=== PATIENT | female | born 1960 | race Caucasian/White ===

== ENCOUNTER 2022-11-17 09:40 | Emergency (ER) | payer BC, OTHER ==
[2022-11-17 09:47] VITALS: TEMP 98.6
[2022-11-17] MEDS ORDERED: SODIUM CHLORIDE 0.9% 2,000 ML IV STA (10:05)
[2022-11-17] MEDS ORDERED: hydrALAZINE HCL 20 MG/ML 1 ML VIAL IVP STA (10:18)
[2022-11-17] MEDS ORDERED: LORazepam 2 MG/ML INJ IV STA (10:30)
--- NOTE | 2022-11-17 10:42 | ED ---
Anxiety HPI - General Chief Complaint: Anxiety Stated Complaint: HTN,Anxiety Time Seen by Provider: 11/17/22 10:02 Source: EMS Mode of arrival: EMS - History of Present Illness Initial Comments: Patient 62-year-old female who presents to the emergency department with a chief complaint of anxiety. Patient states her is out of town who usually does the driving for patient which has been giving patient extra stress. Patient states over the past 2 days she has had daily episodes of where she feels lightheaded, heart racing, spotty vision, and "hot and itchy in her face and scalp." These episodes last about 30 seconds. Patient states she feels very anxious during this time. She does admit to history of panic attack. She denies vision changes currently. No syncope, chest pain or shortness of breath. Patient states she has not been to a doctor in 13 years. No history of cardiac disease that she knows of. Family history of cardiac disease includes her father who had a CABG at age 53. Patient drank 12 ounces of vodka daily for the past 2 years. Last drink was last night. She denies history of alcohol withdrawal hallucinations and seizure. MD Complaint: anxiety - Related Data Home Medications: Previous Rx's Medication Instructions Recorded hydrOXYzine HCL [Atarax] 10 mg PO TID PRN #15 tab 11/17/22 Allergies/Adverse Reactions: Allergies Allergy/AdvReac Type Severity Reaction Status Date / Time No Known Allergies Allergy Verified 11/17/22 10:16 Review of Systems ROS Statement: Those systems with pertinent positive or pertinent negative responses have been documented in the HPI. ROS Other: All systems not noted in ROS Statement are negative. Past Medical History Past Medical History: No Reported History History of Any Multi-Drug Resistant Organisms: None Reported Past Surgical History: Hysterectomy, Tonsillectomy Past Psychological History: No Psychological Hx Reported Smoking Status: Unknown if ever smoked Past Alcohol Use History: Daily Past Drug Use History: None Reported General Exam Limitations: no limitations General appearance: alert, in no apparent distress Head exam: Present: atraumatic, normocephalic, normal inspection Eye exam: Present: normal appearance, PERRL, EOMI. Absent: scleral icterus, conjunctival injection, periorbital swelling Respiratory exam: Present: normal lung sounds bilaterally. Absent: respiratory distress, wheezes, rales, rhonchi, stridor Cardiovascular Exam: Present: normal rhythm, tachycardia, normal heart sounds. Absent: regular rate, systolic murmur, diastolic murmur, rubs, gallop, clicks GI/Abdominal exam: Present: soft, normal bowel sounds. Absent: distended, tenderness, guarding, rebound, rigid Neurological exam: Present: alert, oriented X3, CN II-XII intact Psychiatric exam: Present: normal affect, anxious. Absent: normal mood Skin exam: Present: warm, dry, intact, normal color. Absent: rash Course Vital Signs 11/17/22 11/17/22 11/17/22 09:41 10:45 11:35 Temperature 98.6 F Pulse Rate 104 H 101 H 89 Respiratory 24 18 18 Rate Blood Pressure 181/108 160/98 148/79 O2 Sat by Pulse 99 99 99 Oximetry Medical Decision Making - Medical Decision Making Was pt. sent in by a medical professional or institution (, PA, BARREL WATERER, urgent care, hospital, or assisted...) When possible be specific @ -[No] Did you speak to anyone other than the patient for history (EMS, parent, family, police, friend...)? What history was obtained from this source @ -[No] Did you review nursing and triage notes (agree or disagree)? Why? @ -[I reviewed and agree with nursing and triage notes] Were old charts reviewed (outside hosp., previous admission, EMS record, old EKG, old radiological studies, urgent care reports/EKG's, assisted records)? Report findings @ -Attempted, this is patient's first visit. Differential Diagnosis (chest pain, altered mental status, abdominal pain women, abdominal pain men, vaginal bleeding, weakness, fever, dyspnea, syncope, headache, dizziness, GI bleed, back pain, seizure, CVA, palpatations, mental health)? @ Differential Dizziness: Benign paroxysmal positional Vertigo, Menieres disease, otitis media, acoustic neuroma, vertebrobasilar insufficiency, cerebellar stroke, encephalitis, hypovolemic, arrhythmia, coronary artery syndrome, anemia, this is not meant to be an all-inclusive listt. EKG interpreted by me (3pts min.). @ -Yes, EKG shows sinus rhythm with occasional supraventricular premature complexes. Ventricular rate 96, SD interval 153, QRS duration 88, QTC 414 X-rays interpreted by me (1pt min.). @ Yes, chest x-ray shows COPD changes without acute process CT interpreted by me (1pt min.). @ -[None done] U/S interpreted by me (1pt. min.). @ -[None done] What testing was considered but not performed or refused? (CT, X-rays, U/S, labs)? Why? @ -[None] What meds were considered but not given or refused? Why? @ -[None] Did you discuss the management of the patient with other professionals (professionals i.e. , PA, BARREL WATERER, lab, RT, psych nurse, social services director, paper rewinder, teacher, supply requirements officer, rehabilitation caseworker)? Give summary @ -[No] Was smoking cessation discussed for >3mins.? @ -[No] Was critical care preformed (if so, how long)? @ -[No] Were there social determinants of health that impacted care today? How? (Homelessness, low income, unemployed, alcoholism, drug addiction, transportation, low edu. Level, literacy, decrease access to med. care, [facility], rehab)? @ -[No] Was there de-escalation of care discussed even if they declined (Discuss DNR or withdrawal of care, Hospice)? DNR status @ -[No] What co-morbidities impacted this encounter? (DM, HTN, Smoking, COPD, CAD, Cancer, CVA, ARF, Chemo, Hep., AIDS, mental health diagnosis, sleep apnea, morbid obesity)? @ -Alcohol use Was patient admitted / discharged? Hospital course, mention meds given and route, prescriptions, significant lab abnormalities, going to OR and other pertinent info. @ -Discharged. Blood pressure elevated at 181/108. Tachycardia up to 115. No chest pain or shortness of breath. Laboratory studies ultimately relatively unremarkable. Patient treated with large fluid bolus and Ativan. Blood pressure improved significantly. Tachycardia resolved. Patient feeling better. Stressed importance of alcohol cessation and establishing care with a primary care provider. Patient instructed to check blood pressure at home record measurements until primary care appointment. Undiagnosed new problem with uncertain prognosis? @ -[No] Drug Therapy requiring intensive monitoring for toxicity (Heparin, Nitro, Insulin, Cardizem)? @ -[No] Were any procedures done? @ -[No] Diagnosis/symptom? @ -Anxiety Acute, or Chronic, or Acute on Chronic? @ -Acute Uncomplicated (without systemic symptoms) or Complicated (systemic symptoms)? @ -Uncomplicated Side effects of treatment? @ -[No] Exacerbation, Progression, or Severe Exacerbation? @ -[No] Poses a threat to life or bodily function? How? (Chest pain, [place], [place], pneumonia, PE, COPD, DKA, ARF, appy, cholecystitis, CVA, Diverticulitis, Homicidal, Suicidal, threat to staff... and all critical care pts) @ -[No] Diagnosis/symptom? @ High blood pressure Acute, or Chronic, or Acute on Chronic? @ Acute Uncomplicated (without systemic symptoms) or Complicated (systemic symptoms)? @ -Uncomplicated Side effects of treatment? @ -[none] Exacerbation, Progression, or Severe Exacerbation] @ -[no] Poses a threat to life or bodily function? @ -[no] Dr. Harding is my attending. - Lab Data Result diagrams: 11/17/22 10:30 11/17/22 11:18 Lab Results 11/17/22 11/17/22 11/17/22 Range/Units 10:30 10:30 10:30 WBC 7.6 (3.8-10.6) k/uL RBC 5.07 (3.80-5.40) m/uL Hgb 16.3 H (11.4-16.0) gm/dL Hct 48.7 H (34.0-46.0) % MCV 96.0 (80.0-100.0) fL MCH 32.2 (25.0-35.0) pg MCHC 33.5 (31.0-37.0) g/dL RDW 12.4 (11.5-15.5) % Plt Count 182 (150-450) k/uL MPV 7.3 Neutrophils % 83 % Lymphocytes % 10 % Monocytes % 4 % Eosinophils % 1 % Basophils % 0 % Neutrophils # 6.3 (1.3-7.7) k/uL Lymphocytes # 0.8 L (1.0-4.8) k/uL Monocytes # 0.3 (0-1.0) k/uL Eosinophils # 0.1 (0-0.7) k/uL Basophils # 0.0 (0-0.2) k/uL Sodium (137-145) mmol/L Potassium (3.5-5.1) mmol/L Chloride (98-107) mmol/L Carbon Dioxide (22-30) mmol/L Anion Gap mmol/L BUN (7-17) mg/dL Creatinine (0.52-1.04) mg/dL Est GFR (CKD-EPI)AfAm (>60 ml/min/1.73 sqM) Est GFR (CKD-EPI)NonAf (>60 ml/min/1.73 sqM) Glucose (74-99) mg/dL Calcium (8.4-10.2) mg/dL Total Bilirubin (0.2-1.3) mg/dL AST (14-36) U/L ALT (4-34) U/L Alkaline Phosphatase (38-126) U/L Total Protein (6.3-8.2) g/dL Albumin (3.5-5.0) g/dL Urine Color Light Yellow Urine Appearance Clear (Clear) Urine pH 6.0 (5.0-8.0) Ur Specific [place] 1.004 (1.001-1.035) Urine Protein Trace H (Negative) Urine Glucose (UA) Negative (Negative) Urine Ketones 1+ H (Negative) Urine Blood Negative (Negative) Urine Nitrite Negative (Negative) Urine Bilirubin Negative (Negative) Urine Urobilinogen <2.0 (<2.0) mg/dL Ur Leukocyte Esterase Negative (Negative) Influenza Type A (PCR) Not Detected (Not Detectd) Influenza Type B (PCR) Not Detected (Not Detectd) RSV (PCR) Not Detected (Not Detectd) SARS-CoV-2 (PCR) Not Detected (Not Detectd) 11/17/22 Range/Units 11:18 WBC (3.8-10.6) k/uL RBC (3.80-5.40) m/uL Hgb (11.4-16.0) gm/dL Hct (34.0-46.0) % MCV (80.0-100.0) fL MCH (25.0-35.0) pg MCHC (31.0-37.0) g/dL RDW (11.5-15.5) % Plt Count (150-450) k/uL MPV Neutrophils % % Lymphocytes % % Monocytes % % Eosinophils % % Basophils % % Neutrophils # (1.3-7.7) k/uL Lymphocytes # (1.0-4.8) k/uL Monocytes # (0-1.0) k/uL Eosinophils # (0-0.7) k/uL Basophils # (0-0.2) k/uL Sodium 137 (137-145) mmol/L Potassium 3.5 (3.5-5.1) mmol/L Chloride 107 (98-107) mmol/L Carbon Dioxide 24 (22-30) mmol/L Anion Gap 6 mmol/L BUN 4 L (7-17) mg/dL Creatinine 0.46 L (0.52-1.04) mg/dL Est GFR (CKD-EPI)AfAm >90 (>60 ml/min/1.73 sqM) Est GFR (CKD-EPI)NonAf >90 (>60 ml/min/1.73 sqM) Glucose 89 (74-99) mg/dL Calcium 8.5 (8.4-10.2) mg/dL Total Bilirubin 0.7 (0.2-1.3) mg/dL AST 36 (14-36) U/L ALT 17 (4-34) U/L Alkaline Phosphatase 74 (38-126) U/L Total Protein 6.7 (6.3-8.2) g/dL Albumin 4.2 (3.5-5.0) g/dL Urine Color Urine Appearance (Clear) Urine pH (5.0-8.0) Ur Specific [place] (1.001-1.035) Urine Protein (Negative) Urine Glucose (UA) (Negative) Urine Ketones (Negative) Urine Blood (Negative) Urine Nitrite (Negative) Urine Bilirubin (Negative) Urine Urobilinogen (<2.0) mg/dL Ur Leukocyte Esterase (Negative) Influenza Type A (PCR) (Not Detectd) Influenza Type B (PCR) (Not Detectd) RSV (PCR) (Not Detectd) SARS-CoV-2 (PCR) (Not Detectd) Disposition Clinical Impression: Acute anxiety, High blood pressure Disposition: HOME SELF-CARE Condition: Good Instructions (If sedation given, give patient instructions): Hypertension (ED), Anxiety (ED), Mediterranean Diet (DC) Additional Instructions: Take medication as directed. It is very important to establish care with a primary care provider. I suggest buying a blood pressure cuff at the pharmacy and checking your blood pressure in the morning and at night, recording these numbers. Cessation of alcohol is crucial. Return to the emergency department if you experience new, concerning, or worsening symptoms. Prescriptions: hydrOXYzine HCL [Atarax] 10 mg PO TID PRN #15 tab PRN Reason: Anxiety Is patient prescribed a controlled substance at d/c from ED?: No Referrals: None,Stated [Primary Care Provider] - 1-2 days
[2022-11-17 10:45] LABS: Basophils % (A) 0 %; Eosinophils # (A) 0.1 k/uL (0-0.7); Eosinophils % (A) 1 %; HCT 48.7 % (34.0-46.0); HGB 16.3 gm/dL (11.4-16.0); Lymphocytes # (A) 0.8 k/uL (1.0-4.8); Lymphocytes % (A) 10 %; MCH 32.2 pg (25.0-35.0); MCHC 33.5 g/dL (31.0-37.0); Mean Platelet Volume 7.3; Monocytes # (A) 0.3 k/uL (0-1.0); Monocytes % (A) 4 %; Neutrophils # (A) 6.3 k/uL (1.3-7.7); Neutrophils % (A) 83 %; Platelet Count 182 k/uL (150-450); RBC 5.07 m/uL (3.80-5.40); RDW 12.4 % (11.5-15.5); WBC 7.6 k/uL (3.8-10.6)
[2022-11-17 10:59] LABS: Appearance,Urine Clear (Clear); Bilirubin,Urine Negative (Negative); Blood,Urine Negative (Negative); Color,Urine Light Yellow; Glucose,Urine (UA) Negative (Negative); Ketones,Urine 1+ (Negative); Leukocyte Esterase,Urine Negative (Negative); Nitrite,Urine Negative (Negative); Protein,Urine Trace (Negative); Specific Gravity,Urine 1.004 (1.001-1.035); Urobilinogen,Urine <2.0 mg/dL (<2.0)
--- NOTE | 2022-11-17 11:12 | XR ---
EXAMINATION TYPE: XR chest 2V DATE OF EXAM: 11/17/2022 11:01 AM COMPARISON: None TECHNIQUE: XR chest 2V Frontal and lateral views of the chest. CLINICAL INDICATION:Female, 62 years old with history of lightheaded; FINDINGS: Lungs/Pleura: There is flattening of the diaphragm with increased lucency of the lungs. No evidence o f pneumothorax, pleural effusion or focal consolidation. Postsurgical changes with suture material id entified within the right lung base. Pulmonary vascularity: Unremarkable. Heart/mediastinum: Cardiomediastinal silhouette is unremarkable. Atherosclerotic calcifications are seen in the aorta. Osseous structures: No acute process. IMPRESSION: 1. No acute cardiopulmonary disease process. 2. COPD changes.
[2022-11-17 11:17] VITALS: RESP 18
[2022-11-17 11:35] VITALS: BP 148/79; PULSE 89
[2022-11-17 11:44] LABS: ALT 17 U/L (4-34); AST 36 U/L (14-36); African American GFR (CKD) >90 (>60 ml/min/1.73 sqM); Albumin 4.2 g/dL (3.5-5.0); Alkaline Phosphatase 74 U/L (38-126); Anion Gap 6 mmol/L; Blood Urea Nitrogen 4 mg/dL (7-17); Calcium 8.5 mg/dL (8.4-10.2); Carbon Dioxide 24 mmol/L (22-30); Chloride 107 mmol/L (98-107); Glucose 89 mg/dL (74-99); Non-African American GFR(CKD) >90 (>60 ml/min/1.73 sqM); Potassium 3.5 mmol/L (3.5-5.1); Sodium 137 mmol/L (137-145); Total Bilirubin 0.7 mg/dL (0.2-1.3); Total Protein 6.7 g/dL (6.3-8.2)
== END 2022-11-17 12:23 | disposition home or self-care (01) ==
LOC: EC 09:40
DX: F41.9 Anxiety disorder, unspecified (principal); I10 Essential (primary) hypertension; J44.9 Chronic obstructive pulmonary disease, unspecified; Z20.822 Contact with and (suspected) exposure to COVID-19
CPT/HCPCS: 36415; 93005; 80053; 85025; 81003; 87636; 71046; 99284; 96374; 96361 ×2; J2060

== ENCOUNTER 2023-03-21 12:42 | Inpatient (IN) | payer BC, OTHER ==
[2023-03-21] MEDS ORDERED: SODIUM CHLORIDE 0.9% 1,000 ML IV STA (12:53)
[2023-03-21] MEDS ORDERED: NITROGLYCERIN SL TABS 0.4 MG TAB SUBLINGUAL PRN (12:53)
[2023-03-21] MEDS ORDERED: ATORVASTATIN 80 MG TAB PO STA (12:54)
[2023-03-21] MEDS ORDERED: VERAPAMIL 2.5 MG/ML 2 ML AMP ONE (12:55)
[2023-03-21] MEDS ORDERED: HEPARIN SODIUM 1,000 UN/ML (10ML VL) IV ONE ×2 (12:55→13:28)
[2023-03-21] MEDS ORDERED: LIDOCAINE 1% INJ 10MG/ML (20 ML MDV) ONE (12:55)
--- NOTE | 2023-03-21 12:56 | ED ---
Chest Pain HPI - General Stated Complaint: ANXIETY-CHEST PAIN Time Seen by Provider: 03/21/23 12:49 - History of Present Illness Initial Comments: 63-year-old female presents to the emergency room reporting chest pain and "anxiety". States that for the past couple of days she has felt extremely anxious with pressure in her chest. Feels as if she cannot calm herself down. She took hydroxyzine which is prescribed by her primary care doctor and had no improvement in her symptoms. Called EMS. States she began having chest pain while in the ambulance. They gave her 3 nitro and 4 chewable aspirins. Patient arrives and continues to have central chest pressure without shortness of breath. No cardiac history. States she began having issues with "anxiety" and chest pressure since November. Denies ever having a cardiac workup. The lower externally swelling. No calf pain. No history of DVT or PE. Does admit to drinking 10-12 ounces of vodka every night and did drink last night. No other alleviating, precipitating or modifying factors - Related Data Previous Rx's Medication Instructions Recorded hydrOXYzine HCL [Atarax] 10 mg PO TID PRN #15 tab 11/17/22 Allergies Allergy/AdvReac Type Severity Reaction Status Date / Time No Known Allergies Allergy Verified 03/21/23 13:04 Review of Systems ROS Statement: Those systems with pertinent positive or pertinent negative responses have been documented in the HPI. ROS Other: All systems not noted in ROS Statement are negative. Past Medical History Past Medical History: No Reported History History of Any Multi-Drug Resistant Organisms: None Reported Past Surgical History: Hysterectomy, Tonsillectomy Past Psychological History: No Psychological Hx Reported Smoking Status: Unknown if ever smoked Past Alcohol Use History: Daily Past Drug Use History: None Reported - Past Family History Father History Unknown: Yes Family Medical History: Myocardial Infarction ([place]) Mother Family Medical History: Thyroid Disorder General Exam General appearance: alert, anxious Head exam: Present: atraumatic, normocephalic, normal inspection Eye exam: Present: normal appearance, PERRL, EOMI. Absent: scleral icterus, conjunctival injection, periorbital swelling ENT exam: Present: normal exam, mucous membranes moist Neck exam: Present: normal inspection. Absent: tenderness, meningismus, lymphadenopathy Respiratory exam: Present: normal lung sounds bilaterally. Absent: respiratory distress, wheezes, rales, rhonchi, stridor Cardiovascular Exam: Present: normal rhythm, tachycardia, normal heart sounds. Absent: systolic murmur, diastolic murmur, rubs, gallop, clicks GI/Abdominal exam: Present: soft, normal bowel sounds. Absent: distended, tenderness, guarding, rebound, rigid Extremities exam: Present: normal inspection, full ROM, normal capillary refill. Absent: tenderness, pedal edema, joint swelling, calf tenderness Back exam: Present: normal inspection Neurological exam: Present: alert, oriented X3, CN II-XII intact Psychiatric exam: Present: normal affect, normal mood Skin exam: Present: warm, dry, intact, normal color. Absent: rash Course Vital Signs 03/21/23 03/21/23 03/21/23 12:50 12:55 13:01 Temperature 98 F Pulse Rate 110 H 110 H 122 H Respiratory 16 16 20 Rate Blood Pressure 176/96 181/97 195/104 O2 Sat by Pulse 99 99 95 Oximetry 03/21/23 13:06 Temperature Pulse Rate 122 H Respiratory 20 Rate Blood Pressure 189/114 O2 Sat by Pulse 96 Oximetry Chest Pain MDM - MDM Was pt. sent in by a medical professional or institution (, PA, PROGRAM MANAGEMENT ANALYST, urgent care, hospital, or [facility]...) When possible be specific @ -No Did you speak to anyone other than the patient for history (EMS, parent, family, police, friend...)? What history was obtained from this source @ -No Did you review nursing and triage notes (agree or disagree)? Why? @ -Yes I reviewed the nursing note and I agree with the assessment of the patient Were old charts reviewed (outside hosp., previous admission, EMS record, old EKG, old radiological studies, urgent care reports/EKG's, [facility] records)? Report findings @ -I reviewed the patient's previous ED visit in November where she was seen for anxiety Differential Diagnosis (chest pain, altered mental status, abdominal pain women, abdominal pain men, vaginal bleeding, weakness, fever, dyspnea, syncope, headache, dizziness, GI bleed, back pain, seizure, CVA, palpatations, mental health, musculoskeletal)? @ -Differential Chest Pain: Stable Angina, Unstable Angina, STEMI, NSTEMI Aortic Dissection, Pneumothorax, Musculoskeletal, Esophageal Spasm GERD, Cholecystitis, Pancreatitis, Zoster, this is not meant to be an all-inclusive list. EKG interpreted by me (3pts min.). @ -EKG interpreted by me demonstrates sinus tachycardia with a rate of 109. AR interval 154. QRS 95. QTC of 406. ST elevation in V4 through V6. J-point elevation 2, 3, aVF. Some ST depression in aVR. X-rays interpreted by me (1pt min.). @ -X-ray interpreted by me as no acute process CT interpreted by me (1pt min.). @ -None done U/S interpreted by me (1pt. min.). @ -None done What testing was considered but not performed or refused? (CT, X-rays, U/S, labs)? Why? @ -None What meds were considered but not given or refused? Why? @ -None Did you discuss the management of the patient with other professionals (professionals i.e. , PA, PROGRAM MANAGEMENT ANALYST, lab, RT, psych nurse, psychiatric social worker supervisor, medical science liaison, teacher, procurement officer, case finishing machine adjuster)? Give summary @ -I discussed the case with Dr. Rogel who presents to the ED and take the patient to the [facility] Was smoking cessation discussed for >3mins.? @ -No Was critical care preformed (if so, how long)? @ -Yes, 32 minutes Were there social determinants of health that impacted care today? How? (Homelessness, low income, unemployed, alcoholism, drug addiction, transportation, low edu. Level, literacy, decrease access to med. care, [facility], rehab)? @ -No Was there de-escalation of care discussed even if they declined (Discuss DNR or withdrawal of care, Hospice)? DNR status @ -No What co-morbidities impacted this encounter? (DM, HTN, Smoking, COPD, CAD, Cancer, CVA, ARF, Chemo, Hep., AIDS, mental health diagnosis, sleep apnea, morbid obesity)? @ -None Was patient admitted / discharged? Hospital course, mention meds given and route, prescriptions, significant lab abnormalities, going to OR and other pertinent info. @ -Upon arrival the patient is placed in room 6. Thorough history and physical exam is performed. Patient was placed on continuous pulse ox and cardiac monitoring. 12-lead EKG shows ST elevation in lateral leads which is new for the patient's previous EKG. STEMI was activated. Dr. Rogel presents emergency room and evaluates the patient. He is agreeable that the patient needs a heart cath at this time. Patient was agreeable to procedure. Laboratory studies are sent. Portable chest x-rays performed. Patient taken to [facility] recently in stable condition. [facility] paged for admission Undiagnosed new problem with uncertain prognosis? @ -yes Drug Therapy requiring intensive monitoring for toxicity (Heparin, Nitro, Insulin, Cardizem)? @ -Heparin Were any procedures done? @ -No Diagnosis/symptom? @ -Acute chest pain, acute ST segment elevation Acute, or Chronic, or Acute on Chronic? @ -Acute Uncomplicated (without systemic symptoms) or Complicated (systemic symptoms)? @ -Complicated Side effects of treatment? @ -Bleeding Exacerbation, Progression, or Severe Exacerbation? @ -No Poses a threat to life or bodily function? How? (Chest pain, [place], [place], pneumonia, PE, COPD, DKA, ARF, appy, cholecystitis, CVA, Diverticulitis, Homicidal, Suicidal, threat to staff... and all critical care pts) @ -Yes patient is suffering from acute coronary event which needs immediate catheterization Disposition Clinical Impression: Chest pain, STEMI (ST elevation myocardial infarction) Disposition: ADMITTED IP TO THIS [facility] Condition: Stable Is patient prescribed a controlled substance at d/c from ED?: No Time of Disposition: 13:09 Decision to Admit Reason: Admit from EC Decision Date: 03/21/23 Decision Time: 13:09
[2023-03-21] MEDS ORDERED: HEPARIN SODIUM 1,000 UN/ML (10ML VL) ONE (13:02)
[2023-03-21] MEDS ORDERED: fentaNYL (PF) 50 MCG/ML 2 ML AMP ONE (13:03)
[2023-03-21] MEDS ORDERED: HEPARIN SODIUM,PORCINE 30 ML 30 ML ONE (13:03)
--- NOTE | 2023-03-21 13:08 | XR ---
EXAMINATION TYPE: XR chest 1V portable DATE OF EXAM: 03/21/2023 HISTORY: Shortness of breath. COMPARISON: 11/17/2022 TECHNIQUE: Single view of the chest is submitted. FINDINGS: Demonstrated are scattered senescent parenchymal change. There is no evidence for focal infiltrate. The heart is stable. Hilar and mediastinal structures are within normal limits. Degenerative changes are seen of the dorsal spine. IMPRESSION: 1. Chronic changes without evidence for acute pulmonary disease.
[2023-03-21] MEDS ORDERED: NALOXONE 0.4 MG/ML 1 ML VIAL IV PRN (13:09)
--- NOTE | 2023-03-21 13:15 | P.CRDCN ---
History of Present Illness Consult date: 03/21/23 History of present illness: PROGRESS NOTE The patient is a 63-year-old female who presented to the emergency room with symptoms of anxiety, not feeling well and was having chest pain EMS. In the emergency room she was noted to be in sinus mechanism, her EKG showed ST segment elevation in leads V4 to V6 and mild elevation in lead 1 which is new compared to an EKG performed in October of this year. The patient is active physically, usually has no exertional chest discomfort or dyspnea. She has no history of cardiac disease. She is a nonsmoker. She drinks alcohol, vodka on a regular basis. She denies any PND, orthopnea or peripheral edema. She had issues with anxiety in the past and usually do get better when she walks Medications: None Review of system: Respiratory system: No history of asthma emphysema or bronchitis GI: No nausea or vomiting no GI bleeding : No recent bleeding, or dysuria Nervous system: No history of stroke or seizure PHYSICAL EXAMINATION: 63-year-old female, alert and oriented no distress, Blood pressure 189/110 heart rate 120 Head normocephalic Eyes sclera nonicteric LUNGS: Clear to auscultation HEART: Regular rate and rhythm, S1, S2. No S3. No systolic murmur ABDOMEN: Soft, nontender, no organomegaly EXTREMETIES: No edema LAB: Pending, chest x-ray with no acute infiltrate IMPRESSION: 1. Acute chest discomfort with EKG changes consistent with STEMI 2. Hypertension not documented the past 3. Daily alcohol intake 4. History of anxiety PLAN: 1. Proceed with cardiac catheterization, the procedure as well as the risks and the complication were discussed with her, she is in full understanding and agreement 2. Depending on the results of the testing further recommendations will be made 3. Obtain an echocardiogram with Doppler 4. Thank you for this consult we will follow with you. Past Medical History Past Medical History: No Reported History History of Any Multi-Drug Resistant Organisms: None Reported Past Surgical History: Hysterectomy, Tonsillectomy Past Psychological History: No Psychological Hx Reported Smoking Status: Unknown if ever smoked Past Alcohol Use History: Daily Past Drug Use History: None Reported Medications and Allergies Home Medications Medication Instructions Recorded Confirmed Type hydrOXYzine HCL [Atarax] 10 mg PO TID PRN #15 tab 11/17/22 Rx Allergies Allergy/AdvReac Type Severity Reaction Status Date / Time No Known Allergies Allergy Verified 03/21/23 13:04 Physical Exam Vitals: Vital Signs Temp Pulse Resp BP Pulse Ox 03/21/23 13:06 122 H 20 189/114 96 03/21/23 13:01 98 F 122 H 20 195/104 95 Intake and Output 03/20/23 03/21/23 03/21/23 22:59 06:59 14:59 Other: Weight 55.792 kg Results Current Medications Generic Name Dose Route Start Last Admin Trade Name Freq PRN Reason Stop Dose Admin Sodium Chloride 1,000 mls @ 999 mls/hr 03/21/23 12:53 03/21/23 12:57 Saline 0.9% IV 03/21/23 13:53 999 mls/hr .Q1H1M STA Administration Nitroglycerin 0.4 mg 03/21/23 12:53 Nitroglycerin Sl Tabs 0.4 Mg Tab SUBLINGUAL Q5M PRN Chest Pain Intake and Output 03/20/23 03/21/23 03/21/23 22:59 06:59 14:59 Other: Weight 55.792 kg Patient Weight 03/22/23 06:59 Weight 55.792 kg
[2023-03-21] MEDS ORDERED: IV FLUID CONTINUATION 1,000 ML IV ONE (13:20)
[2023-03-21] MEDS ORDERED: fentaNYL (PF) 50 MCG/ML 2 ML AMP IV ONE (13:21)
[2023-03-21] MEDS ORDERED: LIDOCAINE 1% INJ 10MG/ML (20 ML MDV) SQ ONE (13:23)
[2023-03-21 13:24] LABS: Basophils % (A) 0 %; Eosinophils % (A) 1 %; HCT 42.8 % (34.0-46.0); HGB 14.4 gm/dL (11.4-16.0); Lymphocytes # (A) 0.9 k/uL (1.0-4.8); Lymphocytes % (A) 13 %; MCH 33.4 pg (25.0-35.0); MCHC 33.7 g/dL (31.0-37.0); MCV 99.2 fL (80.0-100.0); Mean Platelet Volume 6.8; Monocytes # (A) 0.3 k/uL (0-1.0); Monocytes % (A) 5 %; Neutrophils # (A) 5.5 k/uL (1.3-7.7); Neutrophils % (A) 79 %; Platelet Count 207 k/uL (150-450); RBC 4.32 m/uL (3.80-5.40); RDW 11.9 % (11.5-15.5)
[2023-03-21] MEDS ORDERED: MIDAZOLAM 2 MG/2 ML VIAL IV ONE (13:24)
[2023-03-21] MEDS ORDERED: VERAPAMIL SYRINGE (5 MG/10 ML) INTRAARTER ONE (13:25)
[2023-03-21] MEDS ORDERED: METOPROLOL TARTRATE 5 MG/5 ML VIAL IVP ONE (13:30)
[2023-03-21] MEDS: METOPROLOL TARTRATE 5 MG/5 ML VIAL IVP ONE ×2 (13:32→13:39)
[2023-03-21] MEDS ORDERED: CLOPIDOGREL 75 MG TAB ONE (13:35)
[2023-03-21 13:36] LABS: ALT 22 U/L (4-34); AST 35 U/L (14-36); African American GFR (CKD) >90 (>60 ml/min/1.73 sqM); Albumin 4.5 g/dL (3.5-5.0); Alkaline Phosphatase 85 U/L (38-126); Anion Gap 16 mmol/L; Blood Urea Nitrogen 9 mg/dL (7-17); Calcium 8.9 mg/dL (8.4-10.2); Carbon Dioxide 22 mmol/L (22-30); Chloride 94 mmol/L (98-107); Glucose 125 mg/dL (74-99); Magnesium 1.6 mg/dL (1.6-2.3); Non-African American GFR(CKD) 88 (>60 ml/min/1.73 sqM); Potassium 3.6 mmol/L (3.5-5.1); Sodium 132 mmol/L (137-145); Total Bilirubin 0.5 mg/dL (0.2-1.3); Total Protein 7.1 g/dL (6.3-8.2)
[2023-03-21] MEDS ORDERED: CLOPIDOGREL 75 MG TAB PO ONE (13:37)
[2023-03-21] MEDS ORDERED: IOPAMIDOL-370 100ML BTL INJ ONE (13:40)
[2023-03-21] MEDS ORDERED: RX INFO: IV CONTRAST WAS GIVEN 1 EACH MISC MISCELLANE PRN (13:42)
[2023-03-21] MEDS ORDERED: SODIUM CHLORIDE 0.9% 1,000 ML IV SCH (13:45)
[2023-03-21 13:47] LABS: Prothrombin Time 10.6 sec (9.0-12.0)
--- NOTE | 2023-03-21 13:49 | P.CARDCATH ---
Date of Procedure: 03/21/23 Description of Procedure: Cardiac Catheterization: The patient is a 63-year-old female with no prior history of cardiac disease presented to the emergency room with symptoms of anxiety and chest discomfort, she had ST segment elevation in the lateral precordial leads. Recommendations were made regarding cardiac catheterization, the risks and the complications were discussed with the patient who is in full understanding and agreement. Procedure Description: Patient was brought to catheterization laboratory technician in fasting semi-sedated state after receiving Fentanyl and Benadryl achieiving moderate conscious sedated state. Using Xylocaine Anesthesia and Seldinger technique, a 6-Turkmen sheath was introduced in the right radial artery . Subsequently, selective coronary angiography was performed using a 5-Turkmen 3.5 bend right Vicky catheter and 6-Turkmen FL 3.5 guiding catheter. Multiple views of the coronary artery including hemiaxial views were obtained. The 6-Turkmen pigtail catheter was used to cross the aortic valve and LVEDP was calculated. An LUO view of the left ventricle was performed. Following that, catheter and sheath were removed. Hemostasis was obtained with deployment of TR band . There was no immediate complication. Patient was returned to room in stable condition. Of note, the patient received a total of 3000 units of intravenous heparin as well as intra-arterial verapamil. Findings: Left main: This is a large size vessel, bifurcating into LAD and left circumflex, left main has no high-grade stenosis LAD: This is a large size vessel reaching to the apex, giving rise to moderately sized diagonal branch proximally, the LAD and its branches have no evidence of obstructive disease Left circumflex: This is a large nondominant vessel, giving rise to 2 obtuse marginal branch have no evidence of obstructive disease RCA: This is a dominant vessel large in caliber bifurcating into PDA and PLV the RCA has no obstructive disease Left Ventriculogram: Performed in the LUO view revealed anteroapical akinesis, ejection fraction 35-40% Hemodynamics: There was no gradient across the aortic valve , LVEDP was 20-24 mmHg Conclusion: 1. Normal coronary arteries 2. Severely impaired ventricle systolic function with anteroapical akinesis 3. Mildly elevated LVEDP 4. Right dominance Recommendations: The patient presentation is consistent with Takotsubo syndrome. She'll be initiated on medical therapy, and echocardiogram will be performed. Apparently she had increased stress recently at home. The findings and the recommendations were discussed with the patient and the family and they were in full understanding and agreement. Duration of sedation is 16 minutes.
[2023-03-21] MEDS ORDERED: LORazepam 1 MG TAB PO PRN ×3 (13:50)
[2023-03-21] MEDS ORDERED: LORazepam 0.5 MG TAB PO PRN (13:50)
[2023-03-21 14:00] LABS: Partial Thromboplastin Time 175.2 sec (22.0-30.0)
[2023-03-21 14:05] LABS: Glucose,Whole Blood 100 mg/dL (70-110)
[2023-03-21] MEDS: SODIUM CHLORIDE 0.9% 1,000 ML IV SCH (14:25)
--- NOTE | 2023-03-21 18:07 | HP ---
HISTORY AND PHYSICAL PRESENTING COMPLAINT: Chest pain. HISTORY OF PRESENTING ILLNESS: A 63-year-old lady with past medical history significant for anxiety, presented to the emergency department with complaints of chest pain. The patient was in the emergency department when she was noted to have ST-segment elevation in V4 to V6 leads and was taken to catheterization lab emergently with catheterization lab activated. The patient states she has chest pain started about 3 days ago. The patient states she has been under a lot of stress. Denies previous cardiac history. Denies history of smoking or illicit drug use. The patient states she has been under a lot of stress recently, recently retired, and her family moved in with her as well, and she has been having difficulty coping with that. Workup initiated in ER included EKG which showed significant ST-segment changes. Blood work was obtained which included normal CBC, PT/INR of 1, additional troponin obtained was 0.285. The patient was taken for cardiac catheterization which showed normal coronary arteries. Postprocedure, the patient was placed in ICU. The patient was started on medical management including aspirin, Lipitor, Plavix, and lisinopril with further review by Cardiology. The patient was also started on metoprolol, and an echocardiogram has been ordered. PAST MEDICAL HISTORY: Anxiety. PAST SURGICAL HISTORY: Significant for: 1. Hysterectomy. 2. Tonsillectomy. ALLERGIES: No known drug allergies. SOCIAL HISTORY: Denies smoking. Occasional alcohol use. Denies illicit drug use. FAMILY HISTORY: Significant for coronary artery disease in father. Mother had history of thyroid issues. REVIEW OF SYSTEMS: Essentially negative except for chest pain and anxiety. PHYSICAL EXAMINATION: VITAL SIGNS: Temperature afebrile, pulse 88, respirations 15, blood pressure 142/86, saturation 96% on room air. GENERAL: The patient is alert and oriented x4, in no apparent distress. CARDIOVASCULAR: Regular rate. No murmur. Lower extremity edema. Right radial access status post cardiac catheterization. No hematoma noted. ABDOMEN: Soft and nontender. PULMONARY: Clear to auscultation bilaterally. No wheeze. No rhonchi. No rales. NEUROLOGIC: Appears at baseline. Alert and oriented x4. No focal deficits noted. SKIN: No apparent skin breakdown. ASSESSMENT: 1. EKG changes consistent with ST-elevation myocardial infarction. 2. Alcohol use disorder. 3. History of anxiety. PLAN: 1. The patient is planned for cardiac catheterization, already completed. It showed normal coronary arteries; however, wall motion abnormality noted. 2. Echocardiogram ordered to evaluate wall motion abnormality. Continue guideline- directed medical therapy on lisinopril and metoprolol. 3. Cardiology consulted. 4. In regard to history of alcohol use, continue the patient on CIWA protocol. Monitor for withdrawal. CODE STATUS: Full code. Total time spent in coordination of care and admission is 35 minutes. MMODL / IJN: [id number] /
--- NOTE | 2023-03-21 18:18 | CA ---
Transthoracic Echo Report Name: Juana Kamara Age: 63 Gender: F : 1960 Exam Date: 03/21/2023 14:33 Exam Location: [facility] Ht (in): 65 Wt (lb): 123 Ordering Physician: Jhon Rogel MD ([id number]) Attending/Referring Phys: Stencil Printer Violetta Smith RDCS Procedure CPT: Indications: SC Cardiac Hx: Technical Quality: Good Contrast 1: Total Dose (mL): Contrast 2: Total Dose (mL): MEASUREMENTS (Male / Female) Normal Values 2D ECHO LV Diastolic Diameter PLAX 4.3 cm 4.2 - 5.9 / 3.9 - 5.3 cm LV Systolic Diameter PLAX 2.6 cm IVS Diastolic Thickness 0.9 cm 0.6 - 1.0 / 0.6 - 0.9 cm LVPW Diastolic Thickness 1.0 cm 0.6 - 1.0 / 0.6 - 0.9 cm LV Relative Wall Thickness 0.4 RV Internal Dim ED PLAX 2.7 cm LA Systolic Diameter LX 2.8 cm 3.0 - 4.0 / 2.7 - 3.8 cm LV Diastolic Volume MOD BP 49.1 cm??? 67 - 155 / 56 - 104 cm??? LV Systolic Volume MOD BP 32.4 cm??? 22 - 58 / 19 - 49 cm??? LV Ejection Fraction MOD BP 34.1 % >= 55 % LV Diastolic Volume MOD 4C 62.4 cm??? LV Systolic Volume MOD 4C 35.0 cm??? LV Ejection Fraction MOD 4C 43.9 % LV Diastolic Length 4C 7.4 cm LV Systolic Length 4C 6.9 cm LV Diastolic Volume MOD 2C 39.7 cm??? LV Systolic Volume MOD 2C 28.8 cm??? LV Ejection Fraction MOD 2C 27.3 % LV Diastolic Length 2C 7.1 cm LV Systolic Length 2C 6.6 cm LA Volume 55.6 cm??? 18 - 58 / 22 - 52 cm??? M-MODE Aortic Root Diameter MM 3.1 cm AV Cusp Separation MM 1.7 cm DOPPLER AV Peak Velocity 147.1 cm/s AV Peak Gradient 8.7 mmHg MV Area PHT 4.1 cm??? Mitral E Point Velocity 76.0 cm/s Mitral A Point Velocity 98.9 cm/s Mitral E to A Ratio 0.8 MV Deceleration Time 185.2 ms TR Peak Velocity 279.1 cm/s TR Peak Gradient 31.2 mmHg Right Ventricular Systolic Press 34.3 mmHg FINDINGS Left Ventricle Left ventricular ejection fraction is estimated at 35-40 %. Left ventricular cavity size normal. Moderately decreased left ventricular ejection fraction. Apical inferior, anterior, lateral and septal murillo hypokinesisleft ventricular cavity size normal. Right Ventricle Normal right ventricular size and function. Mild pulmonary hypertension. Right Atrium Normal right atrial size. Left Atrium Mildly increased left atrial volume. Mitral Valve Mitral valve thickened. Mild mitral annular calcification. Mild to moderate mitral regurgitation. Aortic Valve Trileaflet aortic valve. No aortic valve stenosis or regurgitation. Tricuspid Valve Structurally normal tricuspid valve. Moderate tricuspid regurgitation. Pulmonic Valve Pulmonic valve not well visualized. Pericardium Normal pericardium. No pericardial effusion. Aorta Normal size aortic root and proximal ascending aorta. CONCLUSIONS 1. Normal left ventricle size with moderately impaired systolic function with segmental wall motion abnormality 2. Mild to moderate mitral with moderate tricuspid regurgitation Previewed by: Dr. Jhon Rogel MD (Electronically Signed) Final Date: 21 March 2023 18:17
[2023-03-21] MEDS: METOPROLOL TARTRATE 25 MG TAB PO SCH (21:41)
[2023-03-21] MEDS: lisinopriL 5 MG TAB PO SCH (21:41)
[2023-03-21] MEDS: MELATONIN 5 MG TABLET PO PRN (22:34)
[2023-03-22 04:33] LABS: Basophils % (A) 0 %; Eosinophils % (A) 0 %; HGB 13.7 gm/dL (11.4-16.0); Lymphocytes # (A) 0.8 k/uL (1.0-4.8); Lymphocytes % (A) 15 %; MCH 34.5 pg (25.0-35.0); MCHC 34.1 g/dL (31.0-37.0); MCV 101.1 fL (80.0-100.0); Mean Platelet Volume 7.3; Monocytes # (A) 0.2 k/uL (0-1.0); Monocytes % (A) 4 %; Neutrophils # (A) 4.2 k/uL (1.3-7.7); Neutrophils % (A) 79 %; Platelet Count 170 k/uL (150-450); RBC 3.96 m/uL (3.80-5.40); RDW 12.1 % (11.5-15.5); WBC 5.4 k/uL (3.8-10.6)
[2023-03-22] MEDS: SODIUM CHLORIDE 0.9% 1,000 ML IV SCH ×3 (04:39→16:52)
[2023-03-22 04:41] LABS: African American GFR (CKD) >90 (>60 ml/min/1.73 sqM); Anion Gap 12 mmol/L; Blood Urea Nitrogen 9 mg/dL (7-17); Calcium 8.9 mg/dL (8.4-10.2); Carbon Dioxide 23 mmol/L (22-30); Chloride 98 mmol/L (98-107); Glucose 92 mg/dL (74-99); Non-African American GFR(CKD) >90 (>60 ml/min/1.73 sqM); Potassium 3.9 mmol/L (3.5-5.1); Sodium 133 mmol/L (137-145)
[2023-03-22] MEDS: ASPIRIN 81 MG PO SCH (08:37)
[2023-03-22] MEDS: lisinopriL 5 MG TAB PO SCH ×2 (08:37→19:54)
[2023-03-22] MEDS: METOPROLOL TARTRATE 25 MG TAB PO SCH ×2 (08:37→19:55)
[2023-03-22] MEDS: ATORVASTATIN 40 MG TAB PO SCH (08:37)
[2023-03-22] MEDS: CLOPIDOGREL 75 MG TAB PO SCH (08:38)
--- NOTE | 2023-03-22 09:21 | P.PN ---
Subjective Progress Note Date: 03/22/23 PROGRESS NOTE The patient is a 63-year-old female who presented to the emergency room with symptoms of anxiety, not feeling well and was having chest pain EMS. In the emergency room she was noted to be in sinus mechanism, her EKG showed ST segment elevation in leads V4 to V6 and mild elevation in lead 1 which is new compared to an EKG performed in October of this year. The patient is active physically, usually has no exertional chest discomfort or dyspnea. She has no history of cardiac disease. She is a nonsmoker. She drinks alcohol, vodka on a regular basis. She denies any PND, orthopnea or peripheral edema. She had issues with anxiety in the past and usually do get better when she walks March 21: The patient feels better today she has no further chest discomfort, she underwent cardiac catheterization yesterday and was found to have no evidence of obstructive disease with segmental wall motion abnormality consistent with Takotsubo syndrome. Her echocardiogram showed segmental wall motion abnormality. She continues to be in sinus mechanism. She denies any nausea or vomiting. Medications: Aspirin, Plavix 75 mg daily, Lipitor 40 mg daily, Lopressor 25 mg twice a day, Zestril 5 mg twice a day, Ativan on a when necessary basis. PHYSICAL EXAMINATION: Blood pressure 121/70 heart rate 80 LUNGS: Clear to auscultation HEART: Regular rate and rhythm, S1, S2. No S3. No systolic murmur ABDOMEN: Soft, nontender, no organomegaly EXTREMETIES: No edema, right radial pulse intact LAB: Hemoglobin 13.7, potassium 9, creatinine 0.51. Troponin up to 6.0 IMPRESSION: 1. Evidence of Takotsubo syndrome 2. Acute cardiomyopathy 3. Daily alcohol intake PLAN: 1. Add Aldactone 2. Increase physical activity 3. Transfer to telemetry 4. If stable probable discharge home tomorrow 5. Alcohol cessation Objective - Vital Signs Vital signs: Vital Signs Temp 98.3 F 03/22/23 08:00 Pulse 81 03/22/23 08:00 Resp 13 03/22/23 08:00 BP 121/76 03/22/23 08:00 Pulse Ox 98 03/22/23 08:00 FiO2 Intake & Output 03/21/23 03/22/23 03/22/23 18:59 06:59 18:59 Intake Total 1005 540 Output Total 1450 1400 Balance -445 -860 Weight 55.9 kg Intake: IV 425 Sodium Chloride 0.9% 1, 225 000 ml @ 75 mls/hr IV . [id number] [facility] Rx#:[id number] Oral 580 540 Output: Urine 1450 1400 Other: Voiding Method Bedside Commode Bedside Commode Toilet Bedside Commode # Voids 0 1 - Labs CBC & Chem 7: 03/22/23 03:59 03/22/23 03:59 Labs: Abnormal Lab Results - Last 24 Hours (Table) 03/21/23 03/21/23 03/21/23 Range/Units 13:05 13:05 13:05 MCV (80.0-100.0) fL Lymphocytes # 0.9 L (1.0-4.8) k/uL APTT 175.2 H* (22.0-30.0) sec Sodium 132 L (137-145) mmol/L Chloride 94 L (98-107) mmol/L Creatinine (0.52-1.04) mg/dL Glucose 125 H (74-99) mg/dL Troponin I (0.000-0.034) ng/mL 03/21/23 03/21/23 03/21/23 Range/Units 13:05 15:42 18:54 MCV (80.0-100.0) fL Lymphocytes # (1.0-4.8) k/uL APTT (22.0-30.0) sec Sodium (137-145) mmol/L Chloride (98-107) mmol/L Creatinine (0.52-1.04) mg/dL Glucose (74-99) mg/dL Troponin I 0.285 H* 5.830 H* 6.020 H* (0.000-0.034) ng/mL 03/22/23 03/22/23 Range/Units 03:59 03:59 MCV 101.1 H (80.0-100.0) fL Lymphocytes # 0.8 L (1.0-4.8) k/uL APTT (22.0-30.0) sec Sodium 133 L (137-145) mmol/L Chloride (98-107) mmol/L Creatinine 0.51 L (0.52-1.04) mg/dL Glucose (74-99) mg/dL Troponin I (0.000-0.034) ng/mL
[2023-03-22] MEDS: SPIRONOLACTONE 25 MG TAB PO SCH (09:57)
[2023-03-22 11:55] LABS: Chol/HDL Ratio 2.08 Ratio; LDL Cholesterol,Calculated 121.4 mg/dL; VLDL Calculation 14.58 mg/dL
--- NOTE | 2023-03-22 12:37 | P.PN ---
Subjective Progress Note Date: 03/22/23 63-year-old female who presented to the emergency room with symptoms of anxiety, not feeling well and was having chest pain EMS S/p Cardiac cath Transferred out of ICU Objective - Vital Signs Vital signs: Vital Signs Temp 98.7 F 03/22/23 09:44 Pulse 88 03/22/23 09:44 Resp 16 03/22/23 09:44 BP 158/97 03/22/23 09:44 Pulse Ox 98 03/22/23 09:44 FiO2 Intake & Output 03/21/23 03/22/23 03/22/23 18:59 06:59 18:59 Intake Total 1005 540 20 Output Total 1450 1400 Balance -445 -860 20 Weight 55.9 kg Intake: IV 425 20 Invasive Line 1 10 Invasive Line 2 10 Sodium Chloride 0.9% 1, 225 000 ml @ 75 mls/hr IV . [id number] [facility] Rx#:[id number] Oral 580 540 Output: Urine 1450 1400 Other: Voiding Method Bedside Commode Bedside Commode Toilet Bedside Commode # Voids 0 1 - Exam General appearance: alert, anxious Head exam: Present: atraumatic, normocephalic, normal inspection Eye exam: Present: normal appearance, PERRL, EOMI. Absent: scleral icterus, conjunctival injection, periorbital swelling ENT exam: Present: normal exam, mucous membranes moist Neck exam: Present: normal inspection. Absent: tenderness, meningismus, lymphadenopathy Respiratory exam: Present: normal lung sounds bilaterally. Absent: respiratory distress, wheezes, rales, rhonchi, stridor Cardiovascular Exam: Present: normal rhythm, tachycardia, normal heart sounds. Absent: systolic murmur, diastolic murmur, rubs, gallop, clicks GI/Abdominal exam: Present: soft, normal bowel sounds. Absent: distended, tenderness, guarding, rebound, rigid Extremities exam: Present: normal inspection, full ROM, normal capillary refill. Absent: tenderness, pedal edema, joint swelling, calf tenderness Back exam: Present: normal inspection Neurological exam: Present: alert, oriented X3, CN II-XII intact Psychiatric exam: Present: normal affect, normal mood Skin exam: Present: warm, dry, intact, normal color. Absent: rash - Labs CBC & Chem 7: 03/22/23 03:59 03/22/23 03:59 Labs: Abnormal Lab Results - Last 24 Hours (Table) 03/21/23 03/21/23 03/21/23 Range/Units 13:05 13:05 13:05 MCV (80.0-100.0) fL Lymphocytes # 0.9 L (1.0-4.8) k/uL APTT 175.2 H* (22.0-30.0) sec Sodium 132 L (137-145) mmol/L Chloride 94 L (98-107) mmol/L Creatinine (0.52-1.04) mg/dL Glucose 125 H (74-99) mg/dL Troponin I (0.000-0.034) ng/mL Cholesterol mg/dL HDL Cholesterol mg/dL 03/21/23 03/21/23 03/21/23 Range/Units 13:05 13:05 15:42 MCV (80.0-100.0) fL Lymphocytes # (1.0-4.8) k/uL APTT (22.0-30.0) sec Sodium (137-145) mmol/L Chloride (98-107) mmol/L Creatinine (0.52-1.04) mg/dL Glucose (74-99) mg/dL Troponin I 0.285 H* 5.830 H* (0.000-0.034) ng/mL Cholesterol 262.00 H mg/dL HDL Cholesterol 126.00 H mg/dL 03/21/23 03/22/23 03/22/23 Range/Units 18:54 03:59 03:59 MCV 101.1 H (80.0-100.0) fL Lymphocytes # 0.8 L (1.0-4.8) k/uL APTT (22.0-30.0) sec Sodium 133 L (137-145) mmol/L Chloride (98-107) mmol/L Creatinine 0.51 L (0.52-1.04) mg/dL Glucose (74-99) mg/dL Troponin I 6.020 H* (0.000-0.034) ng/mL Cholesterol mg/dL HDL Cholesterol mg/dL Assessment and Plan Assessment: ASSESSMENT * Evidence of Takotsubo syndrome * Acute cardiomyopathy NON ISCHEMIC * NSTEMI RULED OUT * Daily alcohol intake PLAN S/p CATH, NO Occulsion noted COntinue aspirin, lipitor , metoprolol, lisniopril CIWA Protocol, Ativan as needed DC HOME by tomorrow Monitor BP Time with Patient: Greater than 30
[2023-03-22] MEDS: MELATONIN 5 MG TABLET PO PRN (19:55)
[2023-03-22] MEDS: LORazepam 1 MG TAB PO PRN (23:03)
[2023-03-23] MEDS: LORazepam 1 MG TAB PO PRN (00:26)
[2023-03-23] MEDS ORDERED: LORazepam 2 MG/ML INJ IV PRN (00:47)
[2023-03-23] MEDS: LORazepam 2 MG/ML INJ IV PRN ×5 (01:47→16:00)
[2023-03-23] MEDS: SODIUM CHLORIDE 0.9% 1,000 ML IV SCH ×2 (04:56→17:43)
[2023-03-23] MEDS: METOPROLOL TARTRATE 25 MG TAB PO SCH ×2 (08:56→21:55)
[2023-03-23] MEDS: ASPIRIN 81 MG PO SCH (08:56)
[2023-03-23] MEDS: lisinopriL 5 MG TAB PO SCH ×2 (08:56→21:55)
[2023-03-23] MEDS: CLOPIDOGREL 75 MG TAB PO SCH (08:56)
[2023-03-23] MEDS: SPIRONOLACTONE 25 MG TAB PO SCH (08:56)
[2023-03-23] MEDS: ATORVASTATIN 40 MG TAB PO SCH (08:56)
[2023-03-23 10:06] LABS: African American GFR (CKD) >90 (>60 ml/min/1.73 sqM); Anion Gap 9 mmol/L; Blood Urea Nitrogen 6 mg/dL (7-17); Calcium 8.7 mg/dL (8.4-10.2); Carbon Dioxide 27 mmol/L (22-30); Chloride 95 mmol/L (98-107); Glucose 83 mg/dL (74-99); Non-African American GFR(CKD) >90 (>60 ml/min/1.73 sqM); Sodium 131 mmol/L (137-145)
--- NOTE | 2023-03-23 10:21 | P.PN ---
Subjective PROGRESS NOTE The patient is a 63-year-old female who presented to the emergency room with symptoms of anxiety, not feeling well and was having chest pain EMS. In the emergency room she was noted to be in sinus mechanism, her EKG showed ST segment elevation in leads V4 to V6 and mild elevation in lead 1 which is new compared to an EKG performed in October of this year. The patient is active physically, usually has no exertional chest discomfort or dyspnea. She has no history of cardiac disease. She is a nonsmoker. She drinks alcohol, vodka on a regular basis. She denies any PND, orthopnea or peripheral edema. She had issues with anxiety in the past and usually do get better when she walks March 21: The patient feels better today she has no further chest discomfort, she underwent cardiac catheterization yesterday and was found to have no evidence of obstructive disease with segmental wall motion abnormality consistent with Takotsubo syndrome. Her echocardiogram showed segmental wall motion abnormality. She continues to be in sinus mechanism. She denies any nausea or vomiting. 03/23 Patient seen and examined. Patient had more confusion last night and appears to be withdrawing. She denies any chest pain or pressure. She denies any shortness breath. Pressure is well controlled. PHYSICAL EXAMINATION: Vitals reviewed LUNGS: Clear to auscultation HEART: Regular rate and rhythm, S1, S2. No S3. No systolic murmur ABDOMEN: Soft, nontender, no organomegaly EXTREMETIES: No edema, right radial pulse intact IMPRESSION: 1. Evidence of Takotsubo syndrome 2. Acute cardiomyopathy 3. Daily alcohol intake PLAN: Continue with heart failure regimen. Patient appears stable from a heart failure standpoint and continue with current regimen. Confusion appears mainly related to detox. Discussed alcohol cessation. No further recommendations from cardiology standpoint. Please call with any questions. Objective - Vital Signs Vital signs: Vital Signs Temp 98.0 F 03/23/23 08:00 Pulse 100 03/23/23 08:00 Resp 16 03/23/23 08:00 BP 124/75 03/23/23 08:00 Pulse Ox 99 03/23/23 08:00 FiO2 Intake & Output 03/22/23 03/23/23 03/23/23 18:59 06:59 18:59 Intake Total 20 480 Balance 20 480 Intake: IV 20 Invasive Line 1 10 Invasive Line 2 10 Oral 480 Other: Voiding Method Toilet Toilet Toilet Bedside Commode Bedside Commode Bedside Commode # Voids 2 2 - Labs CBC & Chem 7: 03/22/23 03:59 03/23/23 09:08 Labs: Abnormal Lab Results - Last 24 Hours (Table) 03/21/23 03/23/23 Range/Units 13:05 09:08 Sodium 131 L (137-145) mmol/L Chloride 95 L (98-107) mmol/L BUN 6 L (7-17) mg/dL Creatinine 0.47 L (0.52-1.04) mg/dL Cholesterol 262.00 H mg/dL HDL Cholesterol 126.00 H mg/dL
--- NOTE | 2023-03-23 12:47 | P.PN ---
Subjective Progress Note Date: 03/23/23 63-year-old female who presented to the emergency room with symptoms of anxiety, not feeling well and was having chest pain EMS S/p Cardiac cath Patient noted to have alcohol withdrawal had visual and auditory hallucinations, Objective - Vital Signs Vital signs: Vital Signs Temp 98.0 F 03/23/23 08:00 Pulse 100 03/23/23 08:00 Resp 16 03/23/23 08:00 BP 124/75 03/23/23 08:00 Pulse Ox 99 03/23/23 08:00 FiO2 Intake & Output 03/22/23 03/23/23 03/23/23 18:59 06:59 18:59 Intake Total 20 480 118 Balance 20 480 118 Intake: IV 20 Invasive Line 1 10 Invasive Line 2 10 Oral 480 118 Other: Voiding Method Toilet Toilet Toilet Bedside Commode Bedside Commode Bedside Commode # Voids 2 2 - Exam General appearance: alert, anxious Head exam: Present: atraumatic, normocephalic, normal inspection Eye exam: Present: normal appearance, PERRL, EOMI. Absent: scleral icterus, conjunctival injection, periorbital swelling ENT exam: Present: normal exam, mucous membranes moist Neck exam: Present: normal inspection. Absent: tenderness, meningismus, lymphadenopathy Respiratory exam: Present: normal lung sounds bilaterally. Absent: respiratory distress, wheezes, rales, rhonchi, stridor Cardiovascular Exam: Present: normal rhythm, tachycardia, normal heart sounds. Absent: systolic murmur, diastolic murmur, rubs, gallop, clicks GI/Abdominal exam: Present: soft, normal bowel sounds. Absent: distended, tenderness, guarding, rebound, rigid Extremities exam: Present: normal inspection, full ROM, normal capillary refill. Absent: tenderness, pedal edema, joint swelling, calf tenderness Back exam: Present: normal inspection Neurological exam: Present: alert, oriented X3, patient appears nervous and anxious Psychiatric exam: Present: normal affect, normal mood Skin exam: Present: warm, dry, intact, normal color. Absent: rash - Labs CBC & Chem 7: 03/22/23 03:59 03/23/23 09:08 Labs: Abnormal Lab Results - Last 24 Hours (Table) 03/23/23 Range/Units 09:08 Sodium 131 L (137-145) mmol/L Chloride 95 L (98-107) mmol/L BUN 6 L (7-17) mg/dL Creatinine 0.47 L (0.52-1.04) mg/dL Assessment and Plan Assessment: ASSESSMENT * Evidence of Takotsubo syndrome * Acute cardiomyopathy NON ISCHEMIC * NSTEMI RULED OUT * Alcohol use disorder with acute withdrawal PLAN S/p CATH, NO Occulsion noted COntinue aspirin, lipitor , metoprolol, lisniopril, Aldactone CIWA Protocol, Ativan as needed , continue to monitor for alcohol withdrawal Not medically ready for discharge
[2023-03-23 13:16] VITALS: BMI 20.5
[2023-03-23] MEDS: FOLIC ACID 1 MG TAB PO SCH (17:43)
[2023-03-23] MEDS: THIAMINE 100 MG TAB PO SCH (17:43)
[2023-03-24 08:23] VITALS: RESP 16
[2023-03-24] MEDS: lisinopriL 5 MG TAB PO SCH (09:07)
[2023-03-24] MEDS: FOLIC ACID 1 MG TAB PO SCH (09:07)
[2023-03-24] MEDS: CLOPIDOGREL 75 MG TAB PO SCH (09:07)
[2023-03-24] MEDS: ASPIRIN 81 MG PO SCH (09:07)
[2023-03-24] MEDS: SPIRONOLACTONE 25 MG TAB PO SCH (09:07)
[2023-03-24] MEDS: ATORVASTATIN 40 MG TAB PO SCH (09:07)
[2023-03-24] MEDS: THIAMINE 100 MG TAB PO SCH (09:07)
[2023-03-24] MEDS: METOPROLOL TARTRATE 25 MG TAB PO SCH (09:07)
[2023-03-24] MEDS: SODIUM CHLORIDE 0.9% 1,000 ML IV SCH (09:08)
[2023-03-24 11:50] LABS: ALT 20 U/L (4-34); AST 39 U/L (14-36); African American GFR (CKD) >90 (>60 ml/min/1.73 sqM); Albumin 3.6 g/dL (3.5-5.0); Alkaline Phosphatase 63 U/L (38-126); Anion Gap 10 mmol/L; Blood Urea Nitrogen 6 mg/dL (7-17); Calcium 8.8 mg/dL (8.4-10.2); Carbon Dioxide 22 mmol/L (22-30); Chloride 97 mmol/L (98-107); Glucose 89 mg/dL (74-99); Magnesium 1.6 mg/dL (1.6-2.3); Non-African American GFR(CKD) >90 (>60 ml/min/1.73 sqM); Potassium 3.5 mmol/L (3.5-5.1); Sodium 129 mmol/L (137-145); Total Bilirubin 0.7 mg/dL (0.2-1.3)
--- NOTE | 2023-03-24 12:28 | P.DS ---
Providers Date of admission: 03/21/23 13:09 Expected date of discharge: 03/24/23 Attending physician: Yayo Flores MD Primary care physician: Diana Lenka [facility] Course: * 63-year-old female who presented to the emergency room with symptoms of anxiety, not feeling well and was having chest pain EMS. * In the emergency room she was noted to be in sinus mechanism, her EKG showed ST segment elevation in leads V4 to V6 and mild elevation in lead 1 which is new compared to an EKG performed in October of this year. * Patient was taken to cardiac catheterization and underwent cardiac catheterization which showed nonocclusive no obstruction was noted * Echocardiogram was done which showed decreased ejection fraction. 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 Well developed, well nourished. HEENT: Pupils are round and equally reacting to light. EOMI. No scleral icterus. No conjunctival pallor. Normocephalic, atraumatic. No pharyngeal erythema. No thyromegaly. CARDIOVASCULAR: S1 and S2 present. No murmurs, rubs, or gallops. PULMONARY: Chest is clear to auscultation, no wheezing or crackles. ABDOMEN: Soft, nontender, nondistended, normoactive bowel sounds. No palpable organomegaly. MUSCULOSKELETAL: No joint swelling or deformity. EXTREMITIES: No cyanosis, clubbing, or pedal edema. NEUROLOGICAL: Gross neurological examination did not reveal any focal deficits. SKIN: No rashes. Assessment: ASSESSMENT * Evidence of Takotsubo syndrome * Acute cardiomyopathy NON ISCHEMIC * NSTEMI RULED OUT * Alcohol use disorder with acute withdrawal PLAN S/p CATH, NO Occulsion noted, continue current candidate and medical therapy COntinue aspirin, lipitor , metoprolol, lisniopril, Aldactone CIWA Protocol, Ativan as needed , monitored for withdrawal, discharge from stable condition Prescription for Ativan provided findings and medically ready for discharge Patient Condition at Discharge: Stable Plan - Discharge Summary Discharge Rx Participant: Yes New Discharge Prescriptions: New Metoprolol Tartrate [Lopressor] 25 mg PO BID #30 tab Clopidogrel [Plavix] 75 mg PO DAILY 30 Days #30 tab lisinopriL [Zestril] 5 mg PO BID #30 tab Spironolactone [Aldactone] 25 mg PO DAILY 30 Days #30 tab Aspirin 81 mg PO DAILY #30 tab LORazepam [Ativan] 0.5 mg PO BID 3 Days #6 tab Atorvastatin [Lipitor] 40 mg PO DAILY #30 tab Continue hydrOXYzine HCL [Atarax] 10 mg PO TID PRN #15 tab PRN Reason: Anxiety Discharge Medication List hydrOXYzine HCL [Atarax] 10 mg PO TID PRN #15 tab 11/17/22 [Rx] Aspirin 81 mg PO DAILY #30 tab 03/24/23 [Rx] Atorvastatin [Lipitor] 40 mg PO DAILY #30 tab 03/24/23 [Rx] Clopidogrel [Plavix] 75 mg PO DAILY 30 Days #30 tab 03/24/23 [Rx] LORazepam [Ativan] 0.5 mg PO BID 3 Days #6 tab 03/24/23 [Rx] Metoprolol Tartrate [Lopressor] 25 mg PO BID #30 tab 03/24/23 [Rx] Spironolactone [Aldactone] 25 mg PO DAILY 30 Days #30 tab 03/24/23 [Rx] lisinopriL [Zestril] 5 mg PO BID #30 tab 03/24/23 [Rx] Follow up Appointment(s)/Referral(s): Yaa Ledezma [facility] [REFERRING] - 1-2 days Discharge/Stand Alone Forms: AA Meetings [place], Outpatient Counseling, In Substance Abuse Facilities Discharge Disposition: HOME SELF-CARE
[2023-03-24 12:56] VITALS: BP 134/78; PULSE 74; TEMP 98.2
== END 2023-03-24 16:08 | disposition home or self-care (01) | DRG 287 ==
LOC: EC 12:42 → 2SICU 13:09 → 3SCARD 03-22 09:10
PROVIDERS: ADMIT Internal Medicine; ATTEND Internal Medicine
PROC: B2111ZZ Fluoroscopy of Multiple Coronary Arteries using Low Osmolar Contrast (ICD-10-PCS; 2023-03-21)
PROC: HZ2ZZZZ Detoxification Services for Substance Abuse Treatment (ICD-10-PCS; 2023-03-21)
PROC: 4A023N7 Measurement of Cardiac Sampling and Pressure, Left Heart, Percutaneous Approach (ICD-10-PCS; principal; 2023-03-21 12:53)
DX: I51.81 Takotsubo syndrome (principal); F10.239 Alcohol dependence with withdrawal, unspecified; I42.8 Other cardiomyopathies; I10 Essential (primary) hypertension; Z71.6 Tobacco abuse counseling; F41.9 Anxiety disorder, unspecified; I08.1 Rheumatic disorders of both mitral and tricuspid valves; Z90.710 Acquired absence of both cervix and uterus; Z82.49 Family history of ischemic heart disease and other diseases of the circulatory system; Z71.41 Alcohol abuse counseling and surveillance of alcoholic
CPT/HCPCS: 36415; 71045; 80048; 80053; 80061; 83735; 84484; 85025; 85610; 85730; 93005; 93306; 93458; 96374; 99291

== ENCOUNTER 2023-04-17 20:47 | Inpatient (IN) | payer OTHER ==
[2023-04-17] MEDS ORDERED: MORPHINE SULFATE 4 MG/ML SYRINGE IM STA (21:04)
--- NOTE | 2023-04-17 21:05 | ED ---
Lower Extremity Injury HPI - General Chief Complaint: Extremity Injury, Lower Stated Complaint: Right Groin Pain Time Seen by Provider: 04/17/23 20:51 Source: patient, EMS Mode of arrival: EMS Limitations: no limitations - History of Present Illness Initial Comments: Patient is a 63-year-old female presenting to the emergency room via EMS with complaints of right groin region pain that is preventing her from straightening her leg or ambulating. She denies any known aggravating factors reports the pain began this morning and has progressively gotten worse. She denies any trauma or fall. She denies any numbness or tingling in her extremity or groin. She denies any swelling or redness to her groin region. She denies any other complaints or concerns at this time including any back pain, flank pain, abdominal pain, chest pain, shortness of breath, nausea, vomiting, bowel or bladder incontinence, weakness and range of motion impairment not directly related to pain, fevers or chills. She has a past medical history significant for stress-induced [place] with normal cardiac catheterization completed earlier in March, anxiety and EtOH. - Related Data Previous Rx's Medication Instructions Recorded hydrOXYzine HCL [Atarax] 10 mg PO TID PRN #15 tab 11/17/22 Aspirin 81 mg PO DAILY #30 tab 03/24/23 Atorvastatin [Lipitor] 40 mg PO DAILY #30 tab 03/24/23 Clopidogrel [Plavix] 75 mg PO DAILY 30 Days #30 tab 03/24/23 LORazepam [Ativan] 0.5 mg PO BID 3 Days #6 tab 03/24/23 Metoprolol Tartrate [Lopressor] 25 mg PO BID #30 tab 03/24/23 Spironolactone [Aldactone] 25 mg PO DAILY 30 Days #30 tab 03/24/23 lisinopriL [Zestril] 5 mg PO BID #30 tab 03/24/23 Allergies Allergy/AdvReac Type Severity Reaction Status Date / Time No Known Allergies Allergy Verified 03/21/23 13:04 Review of Systems ROS Statement: Those systems with pertinent positive or pertinent negative responses have been documented in the HPI. ROS Other: All systems not noted in ROS Statement are negative. Past Medical History Past Medical History: Chest Pain / Angina, Myocardial Infarction ([place]) History of Any Multi-Drug Resistant Organisms: None Reported Past Surgical History: Hysterectomy, Tonsillectomy Additional Past Surgical History / Comment(s): Heart cath 03/21/2023. Past Anesthesia/Blood Transfusion Reactions: No Reported Reaction Past Psychological History: Anxiety Smoking Status: Unknown if ever smoked Past Alcohol Use History: Daily Past Drug Use History: None Reported - Past Family History Father History Unknown: Yes Family Medical History: Myocardial Infarction ([place]) Mother Family Medical History: Thyroid Disorder General Exam Limitations: no limitations General appearance: alert, in no apparent distress Head exam: Present: atraumatic, normocephalic, normal inspection Eye exam: Present: normal appearance, PERRL, EOMI. Absent: scleral icterus, conjunctival injection, periorbital swelling ENT exam: Present: normal exam, mucous membranes moist Neck exam: Present: normal inspection. Absent: tenderness, meningismus, lymphadenopathy Respiratory exam: Present: normal lung sounds bilaterally. Absent: respiratory distress, wheezes, rales, rhonchi, stridor Cardiovascular Exam: Present: regular rate, normal rhythm, normal heart sounds. Absent: systolic murmur, diastolic murmur, rubs, gallop, clicks GI/Abdominal exam: Present: soft, normal bowel sounds. Absent: distended, tenderness, guarding, rebound, rigid Extremities exam: Present: other (Regarding tenderness without any palpable abnormalities. 2+ pedal pulse) Right Hip exam: Present: tenderness. Absent: full ROM (Refuses to straighten that leg or rotate. Passive range of motion intact), external rotation, internal rotation Neurovascular tendon exam: Present: no vascular compromise Gait: not tested/not observed Back exam: Present: normal inspection Neurological exam: Present: alert, oriented X3, CN II-XII intact Psychiatric exam: Present: normal affect, normal mood Skin exam: Present: warm, dry, intact, normal color. Absent: rash Course Vital Signs 04/17/23 04/18/23 20:49 00:00 Temperature 98.4 F Pulse Rate 72 67 Respiratory 18 18 Rate Blood Pressure 114/62 95/58 O2 Sat by Pulse 96 95 Oximetry Medical Decision Making - Medical Decision Making Was pt. sent in by a medical professional or institution (, PA, EVAPORATOR OPERATOR, urgent care, hospital, or prison...) When possible be specific @ -No Did you speak to anyone other than the patient for history (EMS, parent, family, police, friend...)? What history was obtained from this source @ -No Did you review nursing and triage notes (agree or disagree)? Why? @ -I reviewed and agree with nursing and triage notes Were old charts reviewed (outside hosp., previous admission, EMS record, old EKG, old radiological studies, urgent care reports/EKG's, prison records)? Report findings @ -Yes, most recent laboratory studies from March 2023 prior to discharge, discharge summary and cardiac cath report or reviewed. Differential Diagnosis (chest pain, altered mental status, abdominal pain women, abdominal pain men, vaginal bleeding, weakness, fever, dyspnea, syncope, headache, dizziness, GI bleed, back pain, seizure, CVA, palpatations, mental health, musculoskeletal)? @ -Differential Musculoskeletal Muscular strain, contusion, ligament sprain, fracture, arthritis, septic arthritis, bursitis, cellulitis, muscle spasm, nerve compression, DVT, arterial occlusion, herpes zoster, electrolyte abnormality, tumor.... This is not meant to be in all inclusive list EKG interpreted by me (3pts min.). @ -None done X-rays interpreted by me (1pt min.). @ -X-ray right hip and pelvis: Soft tissue unremarkable. No fracture or dislocation. Joint spaces well maintained. CT interpreted by me (1pt min.). @ -None done U/S (1pt. min.). @ -Ultrasound right lower extremity venous Doppler not interpreted by me per radiologist report poor study quality no obvious DVT identified What testing was considered but not performed or refused? (CT, X-rays, U/S, labs)? Why? @ -None What meds were considered but not given or refused? Why? @ -None Did you discuss the management of the patient with other professionals (professionals i.e. , PA, EVAPORATOR OPERATOR, lab, RT, psych nurse, social work lecturer, instructor weaving, teacher, immigration officer, continuous pillowcase cutter)? Give summary @ -Yes spoke with Dr. Bledsoe regarding patient presentation workup and recommendation for observation admission for hyponatremia intractable right groin pain. He is accepting of admission and denies any further order recommendations this time. Was smoking cessation discussed for >3mins.? @ -No Was critical care preformed (if so, how long)? @ -No Were there social determinants of health that impacted care today? How? (Homelessness, low income, unemployed, alcoholism, drug addiction, transportation, low edu. Level, literacy, decrease access to med. care, penitentiary, rehab)? @ -No Was there de-escalation of care discussed even if they declined (Discuss DNR or withdrawal of care, Hospice)? DNR status @ -No What co-morbidities impacted this encounter? (DM, HTN, Smoking, COPD, CAD, Cancer, CVA, ARF, Chemo, Hep., AIDS, mental health diagnosis, sleep apnea, morbid obesity)? @ -None Was patient admitted / discharged? Hospital course, mention meds given and route , prescriptions, significant lab abnormalities, going to OR and other pertinent info. @ -63-year-old male presenting emergency room with complaints of severe right groin pain which began this morning spontaneously and has progressively gotten worse route the day without any known aggravating or alleviating factors. Due to inability to straight leg will begin workup with x- ray of the right hip and pelvis. Will give morphine for pain and monitor response. No response to pain from morphine. Will give Dilaudid for pain. X-ray negative will proceed with further workup of pain with Doppler of the lower extremity, CBC, CMP and coags. Pain improved with Dilaudid. Venous Doppler negative for DVT though poor quality of study. Laboratory studies reveal hyponatremia with sodium of 124 low chloride 93 low carbon dioxide 21 glucose elevated at 114 and elevated liver enz ymes with AST 79, ALT 92, normal bilirubin, and alkaline phosphate. Patient reports no alcohol drinking since being discharged from the hospital and adherence to medication regiment. Workup findings discussed with patient and significant other at bedside. Advised recommendation of admission for hypo natremia and monitoring of liver enzymes along with continued treatment of pain medication for intractable right groin pain. Patient is agreeable to this plan. Spoke with Dr. Bledsoe math interventionist for [facility] is excepting admission and denies any further orders at this time. Will place admission orders to EM services with IV hydration and pain medication along with home medications resumed. Will admit patient to observation unit in stable condition for hyponatremia and intractable right groin pain to [facility] services Undiagnosed new problem with uncertain prognosis? @ -No Drug Therapy requiring intensive monitoring for toxicity (Heparin, Nitro, Insul in, Cardizem)? @ -No Were any procedures done? @ -No Diagnosis/symptom? @ -Hyponatremia Acute, or Chronic, or Acute on Chronic? @ -Acute on chronic Uncomplicated (without systemic symptoms) or Complicated (systemic symptoms)? @ -Complicated Side effects of treatment? @ -No Exacerbation, Progression, or Severe Exacerbation? @ -No Poses a threat to life or bodily function? How? (Chest pain, [place], [place], pneumonia, PE, COPD, DKA, ARF, appy, cholecystitis, CVA, Diverticulitis, Homicidal, Suicidal, threat to staff... and all critical care pts) @ -Yes, at risk for worsening electrolyte derangement. Diagnosis/symptom? @ -Right groin pain Acute, or Chronic, or Acute on Chronic? @ -Acute Uncomplicated (without systemic symptoms) or Complicated (systemic symptoms)? @ -Uncomplicated Side effects of treatment? @ -none Exacerbation, Progression, or Severe Exacerbation] @ -no Poses a threat to life or bodily function? @ -no Case discussed with Dr. Dumont. - Lab Data Result diagrams: 04/17/23 22:03 04/17/23 22:03 Lab Results 04/17/23 04/17/23 04/17/23 Range/Units 22:03 22:03 22:03 WBC 9.2 (3.8-10.6) k/uL RBC 4.12 (3.80-5.40) m/uL Hgb 13.9 (11.4-16.0) gm/dL Hct 40.0 (34.0-46.0) % MCV 97.1 (80.0-100.0) fL MCH 33.8 (25.0-35.0) pg MCHC 34.7 (31.0-37.0) g/dL RDW 11.3 L (11.5-15.5) % Plt Count 191 (150-450) k/uL MPV 6.9 Neutrophils % 91 % Lymphocytes % 5 % Monocytes % 3 % Eosinophils % 1 % Basophils % 0 % Neutrophils # 8.4 H (1.3-7.7) k/uL Lymphocytes # 0.5 L (1.0-4.8) k/uL Monocytes # 0.2 (0-1.0) k/uL Eosinophils # 0.1 (0-0.7) k/uL Basophils # 0.0 (0-0.2) k/uL PT 10.2 (9.0-12.0) sec INR 1.0 (<1.2) Sodium 124 L (137-145) mmol/L Potassium 5.0 (3.5-5.1) mmol/L Chloride 93 L (98-107) mmol/L Carbon Dioxide 21 L (22-30) mmol/L Anion Gap 10 mmol/L BUN 7 (7-17) mg/dL Creatinine 0.44 L (0.52-1.04) mg/dL Est GFR (CKD-EPI)AfAm >90 (>60 ml/min/1.73 sqM) Est GFR (CKD-EPI)NonAf >90 (>60 ml/min/1.73 sqM) Glucose 114 H (74-99) mg/dL Calcium 8.6 (8.4-10.2) mg/dL Total Bilirubin 1.1 (0.2-1.3) mg/dL AST 79 H (14-36) U/L ALT 92 H (4-34) U/L Alkaline Phosphatase 64 (38-126) U/L Total Protein 6.4 (6.3-8.2) g/dL Albumin 3.8 (3.5-5.0) g/dL - Radiology Data Radiology results: report reviewed, image reviewed Disposition Clinical Impression: Hyponatremia, Right groin pain Disposition: ADMITTED IP TO THIS [facility] Condition: Stable Is patient prescribed a controlled substance at d/c from ED?: No Referrals: Diana Og DO [Primary Care Provider] - 1-2 days Time of Disposition: 00:00
[2023-04-17] MEDS ORDERED: HYDROmorphone 1 MG/ML 1 ML SYRINGE IVP STA (21:58)
--- NOTE | 2023-04-17 22:02 | XR ---
EXAMINATION TYPE: XR Hip RT and AP Pelvis DATE OF EXAM: 04/17/2023 CLINICAL HISTORY: pain TECHNIQUE: AP and frogleg views of the right hip are obtained. Single view pelvis is also submitted. COMPARISON: None. FINDINGS: There is no acute fracture/dislocation evident. The joint space appears within normal li mits. The overlying soft tissue appears unremarkable. IMPRESSION: 1. There is no acute fracture or dislocation. ICD 10 NO FRACTURE, INITIAL EVALUATION
[2023-04-17 23:01] LABS: Basophils % (A) 0 %; Eosinophils # (A) 0.1 k/uL (0-0.7); Eosinophils % (A) 1 %; HGB 13.9 gm/dL (11.4-16.0); Lymphocytes # (A) 0.5 k/uL (1.0-4.8); Lymphocytes % (A) 5 %; MCH 33.8 pg (25.0-35.0); MCHC 34.7 g/dL (31.0-37.0); MCV 97.1 fL (80.0-100.0); Mean Platelet Volume 6.9; Monocytes # (A) 0.2 k/uL (0-1.0); Monocytes % (A) 3 %; Neutrophils # (A) 8.4 k/uL (1.3-7.7); Neutrophils % (A) 91 %; Platelet Count 191 k/uL (150-450); RBC 4.12 m/uL (3.80-5.40); RDW 11.3 % (11.5-15.5); WBC 9.2 k/uL (3.8-10.6)
[2023-04-17 23:23] LABS: Prothrombin Time 10.2 sec (9.0-12.0)
[2023-04-17 23:25] LABS: ALT 92 U/L (4-34); AST 79 U/L (14-36); African American GFR (CKD) >90 (>60 ml/min/1.73 sqM); Albumin 3.8 g/dL (3.5-5.0); Alkaline Phosphatase 64 U/L (38-126); Anion Gap 10 mmol/L; Blood Urea Nitrogen 7 mg/dL (7-17); Calcium 8.6 mg/dL (8.4-10.2); Carbon Dioxide 21 mmol/L (22-30); Chloride 93 mmol/L (98-107); Glucose 114 mg/dL (74-99); Non-African American GFR(CKD) >90 (>60 ml/min/1.73 sqM); Sodium 124 mmol/L (137-145); Total Bilirubin 1.1 mg/dL (0.2-1.3); Total Protein 6.4 g/dL (6.3-8.2)
--- NOTE | 2023-04-17 23:36 | US ---
EXAMINATION TYPE: US venous doppler duplex LE RT DATE OF EXAM: 04/17/2023 11:29 PM COMPARISON: NONE CLINICAL INDICATION: Female, 63 years old with history of pain; right leg pain. patient on Plavix SIDE PERFORMED: right TECHNIQUE: The lower extremity deep venous system is examined utilizing real time linear array sonog kellee with graded compression, doppler sonography and color-flow sonography. VESSELS IMAGED: Common Femoral Vein Deep Femoral Vein Greater Saphenous Vein * Femoral Vein Popliteal Vein Small Saphenous Vein * Proximal Calf Veins (* superficial vessels) Right Leg: No evidence of DVT as visualized. patient unable to rotate leg into adequate position, mary rocha it difficult to evaluate popliteal vein IMPRESSION: Grayscale, color doppler, spectral doppler imaging performed of the deep veins of the lo wer extremities. There is normal flow, compressibility, vascular waveforms.
[2023-04-18] MEDS ORDERED: NALOXONE 0.4 MG/ML 1 ML VIAL IV PRN
[2023-04-18] MEDS ORDERED: hydrOXYzine HCL 10 MG TAB PO PRN (00:01)
[2023-04-18] MEDS: HYDROmorphone 1 MG/ML 1 ML SYRINGE IVP PRN ×6 (00:23→21:27)
[2023-04-18] MEDS: SODIUM CHLORIDE 0.9% 1,000 ML IV SCH ×2 (00:35→16:43)
[2023-04-18 07:45] LABS: ALT 74 U/L (4-34); AST 40 U/L (14-36); African American GFR (CKD) >90 (>60 ml/min/1.73 sqM); Albumin 3.4 g/dL (3.5-5.0); Albumin/Globulin Ratio 1.6; Alkaline Phosphatase 71 U/L (38-126); Anion Gap 8 mmol/L; Basophils % (A) 0 %; Bilirubin,Unconjugated 0.5 mg/dL (0.0-1.1); Blood Urea Nitrogen 10 mg/dL (7-17); Calcium 8.1 mg/dL (8.4-10.2); Carbon Dioxide 26 mmol/L (22-30); Chloride 93 mmol/L (98-107); Eosinophils # (A) 0.1 k/uL (0-0.7); Eosinophils % (A) 1 %; Globulin 2.1 g/dL; Glucose 103 mg/dL (74-99); HCT 38.1 % (34.0-46.0); HGB 12.7 gm/dL (11.4-16.0); Lymphocytes # (A) 0.6 k/uL (1.0-4.8); Lymphocytes % (A) 7 %; MCH 33.1 pg (25.0-35.0); MCHC 33.4 g/dL (31.0-37.0); Mean Platelet Volume 6.8; Monocytes # (A) 0.3 k/uL (0-1.0); Monocytes % (A) 4 %; Neutrophils # (A) 6.7 k/uL (1.3-7.7); Neutrophils % (A) 87 %; Non-African American GFR(CKD) >90 (>60 ml/min/1.73 sqM); Platelet Count 203 k/uL (150-450); Potassium 4.7 mmol/L (3.5-5.1); RBC 3.84 m/uL (3.80-5.40); RDW 11.3 % (11.5-15.5); Sodium 127 mmol/L (137-145); Total Bilirubin 0.6 mg/dL (0.2-1.3); Total Protein 5.5 g/dL (6.3-8.2); WBC 7.7 k/uL (3.8-10.6)
[2023-04-18] MEDS: LORazepam 0.5 MG TAB PO SCH ×3 (08:24→20:54)
[2023-04-18] MEDS: VENLAFAXINE HCL 37.5 MG TAB PO SCH ×2 (08:25→21:28)
[2023-04-18] MEDS: ASPIRIN 81 MG PO SCH (08:25)
[2023-04-18] MEDS: CLOPIDOGREL 75 MG TAB PO SCH (08:25)
[2023-04-18] MEDS: SPIRONOLACTONE 25 MG TAB PO SCH (08:25)
[2023-04-18] MEDS: ATORVASTATIN 40 MG TAB PO SCH (08:25)
[2023-04-18] MEDS: lisinopriL 5 MG TAB PO SCH ×2 (08:36→20:54)
[2023-04-18] MEDS: METOPROLOL TARTRATE 25 MG TAB PO SCH ×2 (08:36→20:54)
--- NOTE | 2023-04-18 11:27 | P.CNOR ---
History of Present Illness - HPI Consult date: 04/18/23 History of present illness: This is a 63 year-old female who is admitted for right hip pain. Orthopedics is consulted for further evaluation. Patient is seen and evaluated at bedside today. Patient states that her pain started on 04/17/2023 after getting out of bed in the morning. Patient states that she noticed mild groin pain in the morning that worsened throughout the day. Patient states that the pain has become so bad that she can no longer bear weight on the right lower extremity. Patient states that the pain radiates down the front of the leg to the toes. Patient denies any numbness, weakness or tingling, fever/chills. Patient states that she has had right-sided groin pain in the past, but it is usually mild and resolves on its own. Patient denies any known injury. Patient reports a history of rheumatoid arthritis, but does not follow with a peeler operator. Patient denies any history of back problems or any current back pain. 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 Patient states that she is on aspirin and Plavix, but denies any cardiac stenting. Patient denies any procedures being done that involved the right leg. Review of Systems See HPI. Past Medical History Past Medical History: Chest Pain / Angina, Myocardial Infarction ([place]) History of Any Multi-Drug Resistant Organisms: None Reported Past Surgical History: Hysterectomy, Tonsillectomy Additional Past Surgical History / Comment(s): Heart cath 03/21/2023. Past Anesthesia/Blood Transfusion Reactions: No Reported Reaction Past Psychological History: Anxiety Smoking Status: Unknown if ever smoked Past Alcohol Use History: Daily Past Drug Use History: None Reported - Past Family History Father History Unknown: Yes Family Medical History: Myocardial Infarction ([place]) Mother Family Medical History: Thyroid Disorder Medications and Allergies Home Medications Medication Instructions Recorded Confirmed Type hydrOXYzine HCL [Atarax] 10 mg PO TID PRN #15 tab 11/17/22 04/18/23 Rx Aspirin 81 mg PO DAILY #30 tab 03/24/23 04/18/23 Rx Atorvastatin [Lipitor] 40 mg PO DAILY #30 tab 03/24/23 04/18/23 Rx Clopidogrel [Plavix] 75 mg PO DAILY 30 Days #30 tab 03/24/23 04/18/23 Rx LORazepam [Ativan] 0.5 mg PO BID 3 Days #6 tab 03/24/23 04/18/23 Rx Metoprolol Tartrate [Lopressor] 25 mg PO BID #30 tab 03/24/23 04/18/23 Rx Spironolactone [Aldactone] 25 mg PO DAILY 30 Days #30 tab 03/24/23 04/18/23 Rx lisinopriL [Zestril] 5 mg PO BID #30 tab 03/24/23 04/18/23 Rx Allergies Allergy/AdvReac Type Severity Reaction Status Date / Time No Known Allergies Allergy Verified 04/18/23 11:20 Physical Examination On exam patient is resting comfortably in bed in no acute distress. Patient is alert and oriented 3. There is significant pain in the right-sided groin with any active or passive motion of the right hip. Patient is able to actively flex the right hip, but this causes significant groin pain. There is no swelling, erythema or ecchymosis. Skin is intact. Calf is soft and nontender to palpation. Sensation intact. The right lower extremity is warm and well perfused. Patient has full range of motion of the right foot and ankle without pain or difficulty. Strength is 5/5. Mildly positive straight leg raise with right lower extremity. No tenderness to palpation over the right hip. There is no pain with full range of motion of the left hip. Negative straight leg raise on the left side. Neurovascular status and circulatory status are intact bilaterally. Results X-rays of the right hip and pelvis dated 04/17/2023 are negative. - Labs Labs: Abnormal Lab Results - Last 24 Hours (Table) 04/17/23 04/17/23 04/18/23 Range/Units 22:03 22:03 07:16 RDW 11.3 L 11.3 L (11.5-15.5) % Neutrophils # 8.4 H (1.3-7.7) k/uL Lymphocytes # 0.5 L 0.6 L (1.0-4.8) k/uL Sodium 124 L (137-145) mmol/L Chloride 93 L (98-107) mmol/L Carbon Dioxide 21 L (22-30) mmol/L Creatinine 0.44 L (0.52-1.04) mg/dL Glucose 114 H (74-99) mg/dL Calcium (8.4-10.2) mg/dL AST 79 H (14-36) U/L ALT 92 H (4-34) U/L Total Protein (6.3-8.2) g/dL Albumin (3.5-5.0) g/dL 04/18/23 Range/Units 07:16 RDW (11.5-15.5) % Neutrophils # (1.3-7.7) k/uL Lymphocytes # (1.0-4.8) k/uL Sodium 127 L (137-145) mmol/L Chloride 93 L (98-107) mmol/L Carbon Dioxide (22-30) mmol/L Creatinine (0.52-1.04) mg/dL Glucose 103 H (74-99) mg/dL Calcium 8.1 L (8.4-10.2) mg/dL AST 40 H (14-36) U/L ALT 74 H (4-34) U/L Total Protein 5.5 L (6.3-8.2) g/dL Albumin 3.4 L (3.5-5.0) g/dL H & H 04/17/23 04/18/23 Range/Units 22:03 07:16 Hgb 13.9 12.7 (11.4-16.0) gm/dL Hct 40.0 38.1 (34.0-46.0) % Coagulation 04/17/23 Range/Units 22:03 INR 1.0 (<1.2) Result Diagrams: 04/18/23 07:16 04/18/23 07:16 Assessment and Plan Assessment: X-rays of the right hip and pelvis are reviewed and are negative. An MRI of the right hip is ordered. Further recommendations pending MRI results.
--- NOTE | 2023-04-18 14:56 | P.HPIM ---
History of Present Illness H&P Date: 04/18/23 History of present illness; this is a 63-year-old lady with past medical history significant for coronary artery disease who presented to the ER because of right groin pain. Patient stated that she woke up this morning complaining of this right groin pain, states that she is unable to lift her leg or ambulate because of that. Patient unable to bear weight on this leg. Patient denies any trauma. She denies any bleeding or numbness in her lower extremity. Because of his right hip pain, patient came to the ER Initial lab work done showed WBC 9.2, hemoglobin 13.9, platelet count 191, sodium 124, potassium 5, chloride 93, carbon dioxide 21, glucose 114, AST 79, ALT 92 Right lower extremity duplex was negative for DVT Right hip x-ray negative for any fractures Patient admitted to medicine service REVIEW OF SYSTEMS: CONSTITUTIONAL: No fever, no malaise, no fatigue. HEENT: No recent visual problems or hearing problems. Denied any sore throat. CARDIOVASCULAR: No chest pain, orthopnea, PND, no palpitations, no syncope. PULMONARY: No shortness of breath, no cough, no hemoptysis. GASTROINTESTINAL: No diarrhea, no nausea, no vomiting, no abdominal pain. NEUROLOGICAL: No headaches, no weakness, no numbness. HEMATOLOGICAL: Denies any bleeding or petechiae. GENITOURINARY: Denies any burning micturition, frequency, or urgency. MUSCULOSKELETAL/RHEUMATOLOGICAL: As mentioned above ENDOCRINE: Denies any polyuria or polydipsia. The rest of the 14-point review of systems is negative. PHYSICAL EXAMINATION: GENERAL: The patient is alert and oriented x3, not in any acute distress. Well developed, well nourished. HEENT: Pupils are round and equally reacting to light. EOMI. No scleral icterus. No conjunctival pallor. Normocephalic, atraumatic. No pharyngeal erythema. No thyromegaly. CARDIOVASCULAR: S1 and S2 present. No murmurs, rubs, or gallops. PULMONARY: Chest is clear to auscultation, no wheezing or crackles. ABDOMEN: Soft, nontender, nondistended, normoactive bowel sounds. No palpable organomegaly. MUSCULOSKELETAL: No joint swelling or deformity. EXTREMITIES: No cyanosis, clubbing, or pedal edema. Reduced range of motion of right hip NEUROLOGICAL: Gross neurological examination did not reveal any focal deficits. SKIN: No rashes. Assessment and plan Hyponatremia Elevated LFTs Right hip pain History of stress-induced cardiomyopathy Hypertension hyperlipidemia History of alcohol abuse Monitor vital signs Monitor CBC monitor CMP Continue IV fluids Continue pain management MRI right hip ordered Resume home meds Consult orthopedics Consult PT and OT Past Medical History Past Medical History: Chest Pain / Angina, Myocardial Infarction ([place]) History of Any Multi-Drug Resistant Organisms: None Reported Past Surgical History: Hysterectomy, Tonsillectomy Additional Past Surgical History / Comment(s): Heart cath 03/21/2023. Past Anesthesia/Blood Transfusion Reactions: No Reported Reaction Past Psychological History: Anxiety Smoking Status: Unknown if ever smoked Past Alcohol Use History: Daily Past Drug Use History: None Reported - Past Family History Father History Unknown: Yes Family Medical History: Myocardial Infarction ([place]) Mother Family Medical History: Thyroid Disorder Medications and Allergies Home Medications Medication Instructions Recorded Confirmed Type hydrOXYzine HCL [Atarax] 10 mg PO TID PRN #15 tab 11/17/22 04/18/23 Rx Aspirin 81 mg PO DAILY #30 tab 03/24/23 04/18/23 Rx Atorvastatin [Lipitor] 40 mg PO DAILY #30 tab 03/24/23 04/18/23 Rx Clopidogrel [Plavix] 75 mg PO DAILY 30 Days #30 tab 03/24/23 04/18/23 Rx LORazepam [Ativan] 0.5 mg PO BID 3 Days #6 tab 03/24/23 04/18/23 Rx Metoprolol Tartrate [Lopressor] 25 mg PO BID #30 tab 03/24/23 04/18/23 Rx Spironolactone [Aldactone] 25 mg PO DAILY 30 Days #30 tab 03/24/23 04/18/23 Rx lisinopriL [Zestril] 5 mg PO BID #30 tab 03/24/23 04/18/23 Rx Allergies Allergy/AdvReac Type Severity Reaction Status Date / Time No Known Allergies Allergy Verified 04/18/23 11:20 Physical Exam Vitals: Vital Signs Temp Pulse Resp BP Pulse Ox 04/18/23 07:40 64 18 106/64 97 04/18/23 04:30 73 18 101/60 96 04/18/23 00:00 67 18 95/58 95 04/17/23 20:49 98.4 F 72 18 114/62 96 Intake and Output 04/17/23 04/18/23 04/18/23 22:59 06:59 14:59 Other: Weight 54.431 kg Results CBC & Chem 7: 04/18/23 07:16 04/18/23 07:16 Labs: Abnormal Lab Results - Last 24 Hours (Table) 04/17/23 04/17/23 04/18/23 Range/Units 22:03 22:03 07:16 RDW 11.3 L 11.3 L (11.5-15.5) % Neutrophils # 8.4 H (1.3-7.7) k/uL Lymphocytes # 0.5 L 0.6 L (1.0-4.8) k/uL Sodium 124 L (137-145) mmol/L Chloride 93 L (98-107) mmol/L Carbon Dioxide 21 L (22-30) mmol/L Creatinine 0.44 L (0.52-1.04) mg/dL Glucose 114 H (74-99) mg/dL Calcium (8.4-10.2) mg/dL AST 79 H (14-36) U/L ALT 92 H (4-34) U/L Total Protein (6.3-8.2) g/dL Albumin (3.5-5.0) g/dL 04/18/23 Range/Units 07:16 RDW (11.5-15.5) % Neutrophils # (1.3-7.7) k/uL Lymphocytes # (1.0-4.8) k/uL Sodium 127 L (137-145) mmol/L Chloride 93 L (98-107) mmol/L Carbon Dioxide (22-30) mmol/L Creatinine (0.52-1.04) mg/dL Glucose 103 H (74-99) mg/dL Calcium 8.1 L (8.4-10.2) mg/dL AST 40 H (14-36) U/L ALT 74 H (4-34) U/L Total Protein 5.5 L (6.3-8.2) g/dL Albumin 3.4 L (3.5-5.0) g/dL
--- NOTE | 2023-04-18 18:15 | MR ---
MRI right hip. HISTORY: Right groin pain. COMPARISON: None. TECHNIQUE: Multiecho multiplanar images of the hips were obtained without contrast. FINDINGS: There is no fracture or focal intraosseous abnormality of the hips or visualized pelvis. There is a small right hip joint effusion and edema in the periarticular soft tissues. The findings r aise the question of a septic right hip. IMPRESSION: Small right hip joint effusion and periarticular soft tissue edema. The findings raise the question o f a septic right hip joint and clinical correlation is recommended.
[2023-04-19] MEDS: HYDROmorphone 1 MG/ML 1 ML SYRINGE IVP PRN ×2 (02:28→06:29)
[2023-04-19] MEDS: SODIUM CHLORIDE 0.9% 1,000 ML IV SCH ×2 (03:51→16:08)
[2023-04-19] MEDS ORDERED: ACETAMINOPHEN TAB 325 MG TAB PO PRN (05:46)
[2023-04-19] MEDS: HYDROcodone/APAP 5-325MG 1 EACH TAB PO PRN ×2 (08:26→21:41)
[2023-04-19] MEDS: ATORVASTATIN 40 MG TAB PO SCH (08:26)
[2023-04-19] MEDS: LORazepam 0.5 MG TAB PO SCH ×2 (08:28→21:41)
[2023-04-19] MEDS: METOPROLOL TARTRATE 25 MG TAB PO SCH ×2 (08:28→21:41)
[2023-04-19] MEDS: SPIRONOLACTONE 25 MG TAB PO SCH (08:28)
[2023-04-19] MEDS: methylPREDNISolone SOD SUCCI 125 MG/2 ML VIAL IV SCH (08:28)
[2023-04-19] MEDS: lisinopriL 5 MG TAB PO SCH (08:28)
[2023-04-19 08:42] LABS: Appearance,Urine Clear (Clear); Bilirubin,Urine Negative (Negative); Blood,Urine Negative (Negative); Color,Urine Yellow; Glucose,Urine (UA) Negative (Negative); Ketones,Urine 2+ (Negative); Leukocyte Esterase,Urine Negative (Negative); Nitrite,Urine Negative (Negative); PH, Urine 5.5 (5.0-8.0); Protein,Urine Trace (Negative); Specific Gravity,Urine 1.014 (1.001-1.035); Urobilinogen,Urine <2.0 mg/dL (<2.0)
[2023-04-19] MEDS: ASPIRIN 81 MG PO SCH (09:04)
[2023-04-19] MEDS: VENLAFAXINE HCL 37.5 MG TAB PO SCH ×2 (09:05→21:41)
[2023-04-19] MEDS: CLOPIDOGREL 75 MG TAB PO SCH (09:25)
--- NOTE | 2023-04-19 10:26 | P.PN ---
Subjective Progress Note Date: 04/19/23 Patient is seen and evaluated at bedside today with Dr. Devang Merida. Patient states that she continues to have pain in the right hip and an inability to ambulate because of the pain. Patient denies any new complaints today. Initial history 04/18/2023: This is a 63 year-old female who is admitted for right hip pain. Orthopedics is consulted for further evaluation. Patient is seen and evaluated at bedside today. Patient states that her pain started on 04/17/2023 after getting out of bed in the morning. Patient states that she noticed mild groin pain in the morning that worsened throughout the day. Patient states that the pain has become so bad that she can no longer bear weight on the right lower extremity. Patient states that the pain radiates down the front of the leg to the toes. Patient denies any numbness, weakness or tingling, fever/chills. Patient states that she has had right-sided groin pain in the past, but it is usually mild and resolves on its own. Patient denies any known injury. Patient reports a history of rheumatoid arthritis, but does not follow with a molder shoulder pad. Patient denies any history of back problems or any current back pain. Patient states that she had a heart attack about one month ago this year and is followin g with a infection control manager. Patient states that she is on aspirin and Plavix, but denies any cardiac stenting. Patient denies any procedures being done that involved the right leg. Objective - Vital Signs Vital signs: Vital Signs Temp 99.1 F 04/19/23 07:00 Pulse 83 04/19/23 07:00 Resp 18 04/19/23 07:00 BP 105/67 04/19/23 07:00 Pulse Ox 91 L 04/19/23 07:00 FiO2 Intake & Output 04/18/23 04/19/23 04/19/23 18:59 06:59 18:59 Weight 54.431 kg Other: # Voids 2 3 2 - Exam On exam patient is resting comfortably in bed in no acute distress. Patient is alert and oriented 3. There is significant pain in the right-sided groin with any active or passive motion of the right hip. Patient is able to actively flex the right hip, but this causes significant groin pain. There is no swelling, erythema or ecchymosis. Skin is intact. Calf is soft and nontender to palpation. Sensation intact. The right lower extremity is warm and well perfused. Patient has full range of motion of the right foot and ankle without pain or difficulty. Strength is 5/5. Mildly positive straight leg raise with right lower extremity. No tenderness to palpation over the right hip. There is no pain with full range of motion of the left hip. Negative straight leg raise on the left side. Neurovascular status and circulatory status are intact bilaterally. - Labs CBC & Chem 7: 04/18/23 07:16 04/18/23 07:16 Labs: Abnormal Lab Results - Last 24 Hours (Table) 04/19/23 04/19/23 Range/Units 08:14 08:26 C-Reactive Protein 11.9 H (<1.0) mg/dL Urine Protein Trace H (Negative) Urine Ketones 2+ H (Negative) Assessment and Plan Assessment: X-rays of the right hip and pelvis are reviewed and are negative. An MRI of the right hip is ordered. Further recommendations pending MRI results. Plan: An MRI report of the right hip dated 04/18/2023 reveals small right hip joint effusion and periarticular soft tissue edema. The findings raise the question of a septic right hip joint and clinical correlation is recommended. 1. MRI is reviewed. There is a low suspicion for septic arthritis of the right hip, but we will plan on right hip aspiration for cultures and cell count. Hold antibiotics until right hip aspiration is performed. Patient has a normal white blood cell count and is afebrile. Patient reports a history of untreated rheumatoid arthritis and it is discussed that her symptoms may be related to this. The patient is started on Solu-Medrol today. ESR and CRP labs are pending. Further recommendations pending right hip aspiration.
[2023-04-19 11:33] LABS: ALT 163 U/L (4-34); AST 114 U/L (14-36); African American GFR (CKD) >90 (>60 ml/min/1.73 sqM); Albumin 3.2 g/dL (3.5-5.0); Albumin/Globulin Ratio 1.4; Alkaline Phosphatase 113 U/L (38-126); Anion Gap 10 mmol/L; Blood Urea Nitrogen 6 mg/dL (7-17); Calcium 7.9 mg/dL (8.4-10.2); Carbon Dioxide 21 mmol/L (22-30); Chloride 92 mmol/L (98-107); Globulin 2.3 g/dL; Glucose 90 mg/dL (74-99); Non-African American GFR(CKD) >90 (>60 ml/min/1.73 sqM); Potassium 4.4 mmol/L (3.5-5.1); Sodium 123 mmol/L (137-145); Total Bilirubin 1.5 mg/dL (0.2-1.3); Total Protein 5.5 g/dL (6.3-8.2)
--- NOTE | 2023-04-19 12:56 | P.PN ---
Subjective Progress Note Date: 04/19/23 this is a 63-year-old lady with past medical history significant for coronary artery disease who presented to the ER because of right groin pain. Patient stated that she woke up this morning complaining of this right groin pain, states that she is unable to lift her leg or ambulate because of that. Patient unable to bear weight on this leg. Patient denies any trauma. She denies any bleeding or numbness in her lower extremity. Because of his right hip pain, patient came to the ER Initial lab work done showed WBC 9.2, hemoglobin 13.9, platelet count 191, sodium 124, potassium 5, chloride 93, carbon dioxide 21, glucose 114, AST 79, ALT 92 Right lower extremity duplex was negative for DVT Right hip x-ray negative for any fractures Patient admitted to medicine service 04/19. States right hip pain has improved. States she is able to move her hip better. Denies any fever or chills. REVIEW OF SYSTEMS: CONSTITUTIONAL: No fever, no malaise,. CARDIOVASCULAR: No chest pain, no palpitations, no syncope. PULMONARY: No shortness of breath, no cough, GASTROINTESTINAL: No diarrhea, no nausea, no vomiting, no abdominal pain. NEUROLOGICAL: No headaches, no weakness, PHYSICAL EXAMINATION: GENERAL: The patient is alert and oriented x3, not in any acute distress. Well developed, well nourished. HEENT: Pupils are round and equally reacting to light. EOMI. No scleral icterus. No conjunctival pallor. Normocephalic, atraumatic. No pharyngeal erythema. No thyromegaly. CARDIOVASCULAR: S1 and S2 present. No murmurs, rubs, or gallops. PULMONARY: Chest is clear to auscultation, no wheezing or crackles. ABDOMEN: Soft, nontender, nondistended, normoactive bowel sounds. No palpable organomegaly. MUSCULOSKELETAL: No joint swelling or deformity. Reduce range of motion of right hip EXTREMITIES: No cyanosis, clubbing, or pedal edema. NEUROLOGICAL: Gross neurological examination did not reveal any focal deficits. SKIN: No rashes. Assessment and plan Hyponatremia Elevated LFTs Right hip joint effusion History of stress-induced cardiomyopathy Hypertension hyperlipidemia History of alcohol abuse Monitor vital signs Monitor CBC monitor CMP Continue IV fluids Continue pain management Started on IV Solu-Medrol MRI right hip showed small right hip joint effusion and periarticular soft tissue edema. The findings raise the question of a septic right hip joint Orthopedics recommended joint aspiration, ordered CRP and ESR, will hold off on antibiotics for now Consult PT and OT Consult nephrology for hyponatremia Objective - Vital Signs Vital signs: Vital Signs Temp 99.1 F 04/19/23 07:00 Pulse 83 04/19/23 07:00 Resp 18 04/19/23 07:00 BP 105/67 04/19/23 07:00 Pulse Ox 91 L 04/19/23 07:00 FiO2 Intake & Output 04/18/23 04/19/23 04/19/23 18:59 06:59 18:59 Weight 54.431 kg Other: # Voids 2 3 2 - Labs CBC & Chem 7: 04/18/23 07:16 04/19/23 08:26 Labs: Abnormal Lab Results - Last 24 Hours (Table) 04/19/23 04/19/23 04/19/23 Range/Units 08:14 08:26 08:26 Sodium 123 L (137-145) mmol/L Chloride 92 L (98-107) mmol/L Carbon Dioxide 21 L (22-30) mmol/L BUN 6 L (7-17) mg/dL Creatinine 0.45 L (0.52-1.04) mg/dL Calcium 7.9 L (8.4-10.2) mg/dL Total Bilirubin 1.5 H (0.2-1.3) mg/dL AST 114 H (14-36) U/L ALT 163 H (4-34) U/L C-Reactive Protein 11.9 H (<1.0) mg/dL Total Protein 5.5 L (6.3-8.2) g/dL Albumin 3.2 L (3.5-5.0) g/dL Urine Protein Trace H (Negative) Urine Ketones 2+ H (Negative)
[2023-04-20 08:53] LABS: Basophils # (A) 0.01 X 10*3/uL (0.00-0.10); Basophils % (A) 0.1 %; Eosinophils # (A) 0.02 X 10*3/uL (0.04-0.35); Eosinophils % (A) 0.2 %; HCT 37.6 % (37.2-46.3); HGB 12.7 d/dL (12.0-15.0); Lymphocytes # (A) 0.62 X 10*3/uL (0.90-5.00); Lymphocytes % (A) 7.5 %; MCH 31.9 pg (27.0-32.0); MCHC 33.8 d/dL (32.0-37.0); MCV 94.5 FL (80.0-97.0); Mean Platelet Volume 9.5 FL (9.5-12.2); Monocytes # (A) 0.54 X 10*3/uL (0.20-1.00); Monocytes % (A) 6.5 %; NRBC Per 100 WBC 0 X 10*3/uL (0.00-0.01); Neutrophils # (A) 7.09 X 10*3/uL (1.80-7.70); Neutrophils % (A) 85.5 %; Platelet Count 211 X 10*3/uL (140-440); RBC 3.98 X 10*6/uL (4.10-5.20); RDW 11.1 % (11.5-14.5)
[2023-04-20] MEDS ORDERED: SODIUM CHLORIDE TAB 1 GM TAB PO STA (08:57)
[2023-04-20 09:09] LABS: ALT 264 U/L (8-44); AST 162 U/L (13-35); Albumin 3.5 d/dL (3.8-4.9); Albumin/Globulin Ratio 1.75 Ratio (1.60-3.17); Alkaline Phosphatase 152 U/L (41-126); BUN/Creat Ratio 16.25 Ratio (12.00-20.00); Blood Urea Nitrogen 6.5 mg/dL (9.0-27.0); Carbon Dioxide 24.1 mmol/L (21.6-31.8); Chloride 94 mmol/L (96-109); Glucose 99 mg/dL (70-110); Potassium 4.5 mmol/L (3.5-5.5); Sodium 131 mmol/L (135-145); Total Bilirubin 0.7 mg/dL (0.3-1.2); Total Protein 5.5 d/dL (6.2-8.2)
[2023-04-20] MEDS: HYDROcodone/APAP 5-325MG 1 EACH TAB PO PRN ×2 (09:33→20:05)
[2023-04-20] MEDS: LORazepam 0.5 MG TAB PO SCH ×2 (09:33→20:05)
[2023-04-20] MEDS: METOPROLOL TARTRATE 25 MG TAB PO SCH ×2 (09:34→20:05)
[2023-04-20] MEDS: SPIRONOLACTONE 25 MG TAB PO SCH (09:34)
[2023-04-20] MEDS: VENLAFAXINE HCL 37.5 MG TAB PO SCH ×2 (09:34→20:28)
[2023-04-20] MEDS: ATORVASTATIN 40 MG TAB PO SCH (09:34)
[2023-04-20] MEDS: methylPREDNISolone SOD SUCCI 125 MG/2 ML VIAL IV SCH (09:34)
--- NOTE | 2023-04-20 11:55 | P.NPCON ---
History of Present Illness - Reason for Consult hyponatremia - History of Present Illness Patient is a 63-year-old female who is admitted to the hospital with significant pain in the right groin and hip area with inability to lift her leg and inability to bear weight or walk. No history of fever or chills No history of abdominal pain No history of back pain Underlying history of coronary artery disease. No previous history of hyponatremia. Sodium was 124 on admission and patient was started on IV fluids. It is unclear if the IV fluids were running. Serum sodium improved to 127 and then it appears that it dropped back down to 122 last night. IV fluids were discontinued but again it is unclear if the fluids were still running. Sodium this morning was 131, this was drawn at 5:21 AM but not resulted until after 10 AM. Patient was given his sodium chloride tab early this morning around 9:30 AM for persistent and worsening hyponatremia. Patient denies any symptoms of numbness tingling. No history of nausea vomiting. Review of Systems As per HPI Past Medical History Past Medical History: Chest Pain / Angina, Myocardial Infarction ([place]) Last Myocardial Infarction Date:: 03/2023 History of Any Multi-Drug Resistant Organisms: None Reported Past Surgical History: Hysterectomy, Tonsillectomy Additional Past Surgical History / Comment(s): Heart cath 03/21/2023. Past Anesthesia/Blood Transfusion Reactions: No Reported Reaction Smoking Status: Never smoker - Past Family History Father History Unknown: Yes Family Medical History: Myocardial Infarction ([place]) Mother Family Medical History: Thyroid Disorder Medications and Allergies Home Medications Medication Instructions Recorded Confirmed Type hydrOXYzine HCL [Atarax] 10 mg PO TID PRN #15 tab 11/17/22 04/18/23 Rx Aspirin 81 mg PO DAILY #30 tab 03/24/23 04/18/23 Rx Atorvastatin [Lipitor] 40 mg PO DAILY #30 tab 03/24/23 04/18/23 Rx Clopidogrel [Plavix] 75 mg PO DAILY 30 Days #30 tab 03/24/23 04/18/23 Rx LORazepam [Ativan] 0.5 mg PO BID 3 Days #6 tab 03/24/23 04/18/23 Rx Metoprolol Tartrate [Lopressor] 25 mg PO BID #30 tab 03/24/23 04/18/23 Rx Spironolactone [Aldactone] 25 mg PO DAILY 30 Days #30 tab 03/24/23 04/18/23 Rx lisinopriL [Zestril] 5 mg PO BID #30 tab 03/24/23 04/18/23 Rx Allergies Allergy/AdvReac Type Severity Reaction Status Date / Time No Known Allergies Allergy Verified 04/18/23 11:20 Physical Exam Vitals: Vital Signs Temp Pulse Resp BP Pulse Ox 04/20/23 07:31 98.2 F 73 17 129/78 97 04/20/23 00:47 97.7 F 61 16 113/67 98 04/19/23 19:05 97.9 F 80 16 135/77 94 L 04/19/23 13:53 98.0 F 72 17 109/95 94 L Intake and Output 04/19/23 04/20/23 04/20/23 22:59 06:59 14:59 Other: # Voids 3 2 2 Patient is awake, comfortable, in no acute distress Examination of the heart S1 and S2 Examination of the lungs shows bilateral breath sounds are heard no crackles or wheezing is heard Abdomen is soft nontender Examination lower extremities shows no edema ANESTHESIA TECH exam grossly intact Results - Lab Results Most recent lab results Calcium 9.0 mg/dL (8.7-10.3) 04/20/23 05:21 04/20/23 05:21 04/20/23 05:21 Assessment and Plan Assessment: 1.Hyponatremia most likely hypovolemic. It is unclear if patient was receiving normal saline as it appears as a serum sodium did improve. Saline was discontinued officially last night but it may still have been running this morning upon discussion with nursing staff. The serum sodium of 131 drawn at 5 AM did not result until after 10 AM and patient received a dose of sodium chloride tab is morning for a sodium of 122 which was worsening. Currently she is asymptomatic. I will continue to maintain her off of IV fluids and repeat sodium later on this afternoon. Urine osmolality 268 with random urine sodium of 23 from early this morning. 2. Right hip pain with joint effusion noted on MRI, possible septic arthritis 3. Hypertension with blood pressure currently controlled and on the lower side. Plan: Continue off of IV fluids Repeat sodium this afternoon labs will need to be send stat to avoid error in management. Thank you for the consultation. We will continue to follow the patient with you during her hospitalization.
--- NOTE | 2023-04-20 12:23 | P.PN ---
Subjective Progress Note Date: 04/20/23 Patient is seen and evaluated at bedside today. Patient states that her pain has significantly improved after receiving Solu-Medrol. Patient states that she was able to bear weight and ambulate today. Patient denies any new symptoms or complaints. Patient denies any fever/chills, numbness, weakness or tingling. Initial history 04/18/2023: This is a 63 year-old female who is admitted for right hip pain. Orthopedics is consulted for further evaluation. Patient is seen and evaluated at bedside barbara seay. Patient states that her pain started on 04/17/2023 after getting out of bed in the morning. Patient states that she noticed mild groin pain in the morning that worsened throughout the day. Patient states that the pain has become so bad that she can no longer bear weight on the right lower extremity. Patient states that the pain radiates down the front of the leg to the toes. Patient denies any numbness, weakness or tingling, fever/chills. Patient states that she has had right-sided groin pain in the past, but it is usually mild and resolves on its own. Patient denies any known injury. Patient reports a history of rheumatoid arthritis, but does not follow with a network engineering advisor. P atient denies any history of back problems or any current back pain. Patient states that she had a heart attack about one month ago this year and is following with a aquatic instructor. Patient states that she is on aspirin and Plavix, but denies any cardiac stenting. Patient denies any procedures being done that involved the right leg. Objective - Vital Signs Vital signs: Vital Signs Temp 98.2 F 04/20/23 07:31 Pulse 73 04/20/23 07:31 Resp 17 04/20/23 07:31 BP 129/78 04/20/23 07:31 Pulse Ox 97 04/20/23 07:31 FiO2 Intake & Output 04/19/23 04/20/23 04/20/23 18:59 06:59 18:59 Other: # Voids 3 2 2 - Exam On exam patient is resting comfortably in bed in no acute distress. Patient is alert and oriented 3. Patient has full active and passive range of motion of the right hip without pain or difficulty. Sensation intact. Neurovascular status and circulatory status are intact bilaterally. - Labs CBC & Chem 7: 04/20/23 05:21 04/20/23 05:21 Labs: Abnormal Lab Results - Last 24 Hours (Table) 04/19/23 04/19/23 04/20/23 Range/Units 08:26 20:22 05:21 RBC 3.98 L (4.10-5.20) X 10*6/uL RDW 11.1 L (11.5-14.5) % Lymphocytes # 0.62 L (0.90-5.00) X 10*3/uL Eosinophils # 0.02 L (0.04-0.35) X 10*3/uL Sodium 123 L 122 L (137-145) mmol/L Chloride 92 L (98-107) mmol/L Carbon Dioxide 21 L (22-30) mmol/L Anion Gap (4.00-12.00) mmol/L BUN 6 L (7-17) mg/dL Creatinine 0.45 L (0.52-1.04) mg/dL Calcium 7.9 L (8.4-10.2) mg/dL Total Bilirubin 1.5 H (0.2-1.3) mg/dL AST 114 H (14-36) U/L ALT 163 H (4-34) U/L Alkaline Phosphatase (41-126) U/L Total Protein 5.5 L (6.3-8.2) g/dL Albumin 3.2 L (3.5-5.0) g/dL 04/20/23 Range/Units 05:21 RBC (4.10-5.20) X 10*6/uL RDW (11.5-14.5) % Lymphocytes # (0.90-5.00) X 10*3/uL Eosinophils # (0.04-0.35) X 10*3/uL Sodium 131 L (137-145) mmol/L Chloride 94 L (98-107) mmol/L Carbon Dioxide (22-30) mmol/L Anion Gap 12.90 H (4.00-12.00) mmol/L BUN 6.5 L (7-17) mg/dL Creatinine 0.4 L (0.52-1.04) mg/dL Calcium (8.4-10.2) mg/dL Total Bilirubin (0.2-1.3) mg/dL AST 162 H (14-36) U/L ALT 264 H (4-34) U/L Alkaline Phosphatase 152 H (41-126) U/L Total Protein 5.5 L (6.3-8.2) g/dL Albumin 3.5 L (3.5-5.0) g/dL Assessment and Plan Plan: Patient's symptoms have significantly improved and she has been able to bear full weight on the right leg and ambulate today. It is discussed with the patient that her symptoms are likely related to rheumatoid arthritis and not septic arthritis. ESR and CBC are within normal limits. Patient has remained afebrile. Right hip aspiration is canceled for today and patient may be discharged from an orthopedic standpoint on oral prednisone. It is discussed with the patient at bedside that she should follow up with Rheumatology as an outpatient.
[2023-04-20] MEDS: CLOPIDOGREL 75 MG TAB PO SCH (13:38)
[2023-04-20] MEDS: ASPIRIN 81 MG PO SCH (13:38)
--- NOTE | 2023-04-20 14:23 | P.PN ---
Subjective Progress Note Date: 04/20/23 this is a 63-year-old lady with past medical history significant for coronary artery disease who presented to the ER because of right groin pain. Patient stated that she woke up this morning complaining of this right groin pain, states that she is unable to lift her leg or ambulate because of that. Patient unable to bear weight on this leg. Patient denies any trauma. She denies any bleeding or numbness in her lower extremity. Because of his right hip pain, patient came to the ER Initial lab work done showed WBC 9.2, hemoglobin 13.9, platelet count 191, sodium 124, potassium 5, chloride 93, carbon dioxide 21, glucose 114, AST 79, ALT 92 Right lower extremity duplex was negative for DVT Right hip x-ray negative for any fractures Patient admitted to medicine service 04/19. States right hip pain has improved. States she is able to move her hip better. Denies any fever or chills. 04/20. Patient seen and examined. Right hip pain has improved, orthopedic eval the patient recommended holding off on joint aspiration, recommend discharging on oral prednisone. Patient's sodium level is still 129. REVIEW OF SYSTEMS: CONSTITUTIONAL: No fever, no malaise,. CARDIOVASCULAR: No chest pain, no palpitations, no syncope. PULMONARY: No shortness of breath, no cough, GASTROINTESTINAL: No diarrhea, no nausea, no vomiting, no abdominal pain. NEUROLOGICAL: No headaches, no weakness, PHYSICAL EXAMINATION: GENERAL: The patient is alert and oriented x3, not in any acute distress. Well developed, well nourished. HEENT: Pupils are round and equally reacting to light. EOMI. No scleral icterus. No conjunctival pallor. Normocephalic, atraumatic. No pharyngeal erythema. No thyromegaly. CARDIOVASCULAR: S1 and S2 present. No murmurs, rubs, or gallops. PULMONARY: Chest is clear to auscultation, no wheezing or crackles. ABDOMEN: Soft, nontender, nondistended, normoactive bowel sounds. No palpable organomegaly. MUSCULOSKELETAL: No joint swelling or deformity. Reduce range of motion of right hip EXTREMITIES: No cyanosis, clubbing, or pedal edema. NEUROLOGICAL: Gross neurological examination did not reveal any focal deficits. SKIN: No rashes. Assessment and plan Hyponatremia Elevated LFTs Right hip joint effusion History of stress-induced cardiomyopathy Hypertension hyperlipidemia History of alcohol abuse Monitor vital signs Monitor CBC monitor CMP Continue pain management Continue IV Solu-Medrol MRI right hip showed small right hip joint effusion and periarticular soft tissue edema. Orthopedic joint aspiration, recommend discharging on prednisone with outpatient follow-up with medical technologist chemistry Follow-up on PT and OT Follow-up on nephrology recommendations Objective - Vital Signs Vital signs: Vital Signs Temp 98.2 F 04/20/23 07:31 Pulse 73 04/20/23 07:31 Resp 17 04/20/23 07:31 BP 129/78 04/20/23 07:31 Pulse Ox 97 04/20/23 07:31 FiO2 Intake & Output 04/19/23 04/20/23 04/20/23 18:59 06:59 18:59 Other: # Voids 3 2 2 - Labs CBC & Chem 7: 04/20/23 05:21 04/20/23 11:34 Labs: Abnormal Lab Results - Last 24 Hours (Table) 04/19/23 04/19/23 04/20/23 Range/Units 08:26 20:22 05:21 RBC 3.98 L (4.10-5.20) X 10*6/uL RDW 11.1 L (11.5-14.5) % Lymphocytes # 0.62 L (0.90-5.00) X 10*3/uL Eosinophils # 0.02 L (0.04-0.35) X 10*3/uL Sodium 123 L 122 L (137-145) mmol/L Chloride 92 L (98-107) mmol/L Carbon Dioxide 21 L (22-30) mmol/L Anion Gap (4.00-12.00) mmol/L BUN 6 L (7-17) mg/dL Creatinine 0.45 L (0.52-1.04) mg/dL Calcium 7.9 L (8.4-10.2) mg/dL Total Bilirubin 1.5 H (0.2-1.3) mg/dL AST 114 H (14-36) U/L ALT 163 H (4-34) U/L Alkaline Phosphatase (41-126) U/L Total Protein 5.5 L (6.3-8.2) g/dL Albumin 3.2 L (3.5-5.0) g/dL 04/20/23 Range/Units 05:21 RBC (4.10-5.20) X 10*6/uL RDW (11.5-14.5) % Lymphocytes # (0.90-5.00) X 10*3/uL Eosinophils # (0.04-0.35) X 10*3/uL Sodium 131 L (137-145) mmol/L Chloride 94 L (98-107) mmol/L Carbon Dioxide (22-30) mmol/L Anion Gap 12.90 H (4.00-12.00) mmol/L BUN 6.5 L (7-17) mg/dL Creatinine 0.4 L (0.52-1.04) mg/dL Calcium (8.4-10.2) mg/dL Total Bilirubin (0.2-1.3) mg/dL AST 162 H (14-36) U/L ALT 264 H (4-34) U/L Alkaline Phosphatase 152 H (41-126) U/L Total Protein 5.5 L (6.3-8.2) g/dL Albumin 3.5 L (3.5-5.0) g/dL
[2023-04-21] MEDS: methylPREDNISolone SOD SUCCI 125 MG/2 ML VIAL IV SCH (08:14)
[2023-04-21] MEDS: VENLAFAXINE HCL 37.5 MG TAB PO SCH ×2 (08:55→21:22)
[2023-04-21] MEDS: SPIRONOLACTONE 25 MG TAB PO SCH (08:55)
[2023-04-21] MEDS: ASPIRIN 81 MG PO SCH (08:55)
[2023-04-21] MEDS: METOPROLOL TARTRATE 25 MG TAB PO SCH ×2 (08:55→20:55)
[2023-04-21] MEDS: LORazepam 0.5 MG TAB PO SCH ×2 (08:55→20:55)
[2023-04-21] MEDS: CLOPIDOGREL 75 MG TAB PO SCH (08:55)
[2023-04-21] MEDS ORDERED: SODIUM CHLORIDE TAB 1 GM TAB PO SCH (09:30)
--- NOTE | 2023-04-21 10:29 | P.PN ---
Subjective Progress Note Date: 04/21/23 Patient is seen and evaluated at bedside today. Patient states that her right hip pain continues to improve and she is able to ambulate. Patient denies any new symptoms or complaints. Patient denies any fever/chills, numbness, weakness or tingling. Initial history 04/18/2023: This is a 63 year-old female who is admitted for right hip pain. Orthopedics is consulted for further evaluation. Patient is seen and evaluated at bedside today. Patient states that her pain started on 04/17/2023 after getting out of bed in the morning. Patient states that she noticed mild groin pain in the morning that worsened throughout the day. Patient states that the pain has become so bad that she can no longer bear weight on the right lower extremity. Patient states that the pain radiates down the front of the leg to the toes. Patient denies any numbness, weakness or tingling, fever/chills. Patient states that she has had right-sided groin pain in the past, but it is usually mild and resolves on its own. Patient denies any known injury. Patient reports a history of rheumatoid arthritis, but does not follow with a manager income tax. Patient denies any history of back problems or any current back pain. Patient states that she had a heart attack about one month ago this year and is following with a services host. Patient states that she is on aspirin and Plavix, but denies any cardiac stenting. Patient denies any procedures being done that involved the right leg. Objective - Vital Signs Vital signs: Vital Signs Temp 96.7 F L 04/21/23 07:17 Pulse 73 04/21/23 07:17 Resp 16 04/21/23 07:17 BP 124/78 04/21/23 07:17 Pulse Ox 95 04/21/23 07:17 FiO2 Intake & Output 04/20/23 04/21/23 04/21/23 18:59 06:59 18:59 Intake Total 740 Balance 740 Intake: Oral 740 Other: # Voids 3 2 - Exam On exam patient is resting comfortably in bed in no acute distress. Patient is alert and oriented 3. Patient has full active and passive range of motion of the right hip without pain or difficulty. Sensation intact. Neurovascular status and circulatory status are intact bilaterally. - Labs CBC & Chem 7: 04/20/23 05:21 04/20/23 11:34 Labs: Abnormal Lab Results - Last 24 Hours (Table) 04/20/23 04/20/23 Range/Units 06:34 11:34 Sodium 128 L (137-145) mmol/L Ur Random Sodium 23 L (40-220) mmol/L Assessment and Plan Assessment: X-rays of the right hip and pelvis are reviewed and are negative. An MRI of the right hip is ordered. Further recommendations pending MRI results. Plan: Patient's symptoms continued to improve and she has been able to bear full weight on the right leg and ambulate.. It is discussed with the patient that her symptoms are likely related to rheumatoid arthritis and not septic arthritis. ESR and CBC are within normal limits. Patient has remained afebrile. Patient may be discharged from an orthopedic standpoint on oral prednisone. It is discussed with the patient at bedside that she should follow up with Rheumatology as an outpatient.
[2023-04-21 10:45] LABS: Basophils # (A) 0.02 X 10*3/uL (0.00-0.10); Basophils % (A) 0.2 %; Eosinophils # (A) 0.01 X 10*3/uL (0.04-0.35); Eosinophils % (A) 0.1 %; HCT 39.5 % (37.2-46.3); HGB 13.3 d/dL (12.0-15.0); Lymphocytes # (A) 0.82 X 10*3/uL (0.90-5.00); Lymphocytes % (A) 8.7 %; MCH 32.5 pg (27.0-32.0); MCHC 33.7 d/dL (32.0-37.0); MCV 96.6 FL (80.0-97.0); Mean Platelet Volume 9.6 FL (9.5-12.2); Monocytes # (A) 0.44 X 10*3/uL (0.20-1.00); Monocytes % (A) 4.7 %; NRBC Per 100 WBC 0 X 10*3/uL (0.00-0.01); Neutrophils # (A) 8.06 X 10*3/uL (1.80-7.70); Platelet Count 285 X 10*3/uL (140-440); RBC 4.09 X 10*6/uL (4.10-5.20); RDW 11.3 % (11.5-14.5); WBC 9.38 X 10*3/uL (4.50-10.00)
[2023-04-21 11:14] LABS: ALT 405 U/L (8-44); AST 221 U/L (13-35); Albumin 3.7 d/dL (3.8-4.9); Albumin/Globulin Ratio 1.68 Ratio (1.60-3.17); Alkaline Phosphatase 168 U/L (41-126); Blood Urea Nitrogen 9.9 mg/dL (9.0-27.0); Calcium 8.8 mg/dL (8.7-10.3); Carbon Dioxide 27.4 mmol/L (21.6-31.8); Chloride 98 mmol/L (96-109); Globulin 2.2 d/dL (1.6-3.3); Glucose 108 mg/dL (70-110); Potassium 4.4 mmol/L (3.5-5.5); Sodium 134 mmol/L (135-145); Total Bilirubin 0.3 mg/dL (0.3-1.2); Total Protein 5.9 d/dL (6.2-8.2)
--- NOTE | 2023-04-21 11:47 | P.PN ---
Subjective Patient is seen for follow-up for hyponatremia. Status post sodium chloride tab with improvement in serum sodium today to 134. No pain in the right leg or groin today. Patient is able to ambulate well. She wants to go home. Objective - Vital Signs Vital signs: Vital Signs Temp 96.7 F L 04/21/23 07:17 Pulse 73 04/21/23 07:17 Resp 16 04/21/23 07:17 BP 124/78 04/21/23 07:17 Pulse Ox 95 04/21/23 07:17 FiO2 Intake & Output 04/20/23 04/21/23 04/21/23 18:59 06:59 18:59 Intake Total 740 Balance 740 Intake: Oral 740 Other: # Voids 3 2 - Exam Patient is awake, comfortable, in no acute distress Examination of the heart S1 and S2 Examination of the lungs shows bilateral breath sounds are heard no crackles or wheezing is heard Abdomen is soft nontender Examination lower extremities shows no edema JIRA ADMINISTRATOR exam grossly intact - Labs CBC & Chem 7: 04/21/23 06:47 04/21/23 06:47 Labs: Abnormal Lab Results - Last 24 Hours (Table) 04/20/23 04/21/23 04/21/23 Range/Units 11:34 06:47 06:47 RBC 4.09 L (4.10-5.20) X 10*6/uL MCH 32.5 H (27.0-32.0) pg RDW 11.3 L (11.5-14.5) % Neutrophils # 8.06 H (1.80-7.70) X 10*3/uL Lymphocytes # 0.82 L (0.90-5.00) X 10*3/uL Eosinophils # 0.01 L (0.04-0.35) X 10*3/uL Sodium 128 L 134 L (137-145) mmol/L Creatinine 0.5 L (0.6-1.5) mg/dL AST 221 H (13-35) U/L ALT 405 H (8-44) U/L Alkaline Phosphatase 168 H (41-126) U/L Total Protein 5.9 L (6.2-8.2) d/dL Albumin 3.7 L (3.8-4.9) d/dL Assessment and Plan Assessment: 1.Hyponatremia most likely hypovolemic versus component of tea and toast syndrome. Improved post sodium chloride tabs. Currently off of IV fluids. Urine osmolality 268 with random urine sodium of 23 2. Right hip pain with joint effusion noted on MRI, possible septic arthritis 3. Hypertension with blood pressure currently controlled and on the lower side. Plan: DC sodium chloride tabs Patient is encouraged to maintain good oral intake post discharge Avoid excessive free water intake Patient can be discharged and follow-up with repeat labs in 1-2 days post discharge.
--- NOTE | 2023-04-21 12:12 | P.CONS ---
History of Present Illness - Reason for Consult Consult date: 04/21/23 Elevated LFTs Requesting physician: Yayo Flores - Chief Complaint Leg pain - History of Present Illness Hoa a pleasant 63-year-old female who presented to the emergency department with complaints of leg pain in her groin and hip. She states that she was here about a week ago with similar complaints, however she was discharged on. Pain came back she was having difficult time walking. She had an MRI of the right hipreported small right hip joint effusion and periarticular soft tissue edema. Findings raise question of septic right joint and clinical correlation rec ommended. Orthopedics is following and consulted interventional radiology for right hip aspiration. On admission patient was noted to have elevated LFTs. She states no previous history of liver disease or elevated LFTs in the past. She also states however she has a history of daily alcohol use and drinks about 12 ounces of vodka daily up until about a month ago. She states about a month ago she had an [place] and since that time she has not had any further drinking. She was started on several new medications at that time including atorvastatin. She denies any recent antibiotic use, states during her last year visit they did start her on prednisone which did help the initial hip pain. Gastroenterology was consulted for elevated LFTs. Admitting labs WBC 8.3 hemoglobin 12.7 platelet count 211,000 sodium 131 potassium 4.5 BUN 6.5 creatinine 0.4 total bilirubin 0.7 AST 162 ALT 264 alkaline phosphatase 152 with repeat total bilirubin 0.3 AST 221 ALT 405 alkaline phosphatase 168. She currently denies any chest pain, shortness of breath, abdominal pain, nausea or vomiting. Review of Systems REVIEW OF SYSTEMS: CARDIOPULMONARY: No chest pain or shortness of breath. Gastrointestinal: No abdominal pain. No nausea or vomiting. No hematemesis, coffee-ground emesis. No rectal bleeding, or melena. GENITOURINARY: No dysuria or hematuria. MUSCULOSKELETAL: Reports normal range of motion., Joint pain. Right groin and leg pain. SKIN: No rashes. No jaundice. ENDOCRINE: No chills, fevers. No excessive weight gain or loss. No polydipsia or polyuria. PSYCHIATRIC: Unremarkable. NEUROLOGY: No change in mental status. Denies dizziness, headache. ENT: Vision unremarkable. CONSTITUTIONAL: No recent weight loss. No fever, chills, night sweats. Past Medical History Past Medical History: Chest Pain / Angina, Myocardial Infarction ([place]) Last Myocardial Infarction Date:: 03/2023 History of Any Multi-Drug Resistant Organisms: None Reported Past Surgical History: Hysterectomy, Tonsillectomy Additional Past Surgical History / Comment(s): Heart cath 03/21/2023. Past Anesthesia/Blood Transfusion Reactions: No Reported Reaction Smoking Status: Never smoker - Past Family History Father History Unknown: Yes Family Medical History: Myocardial Infarction ([place]) Mother Family Medical History: Thyroid Disorder Medications and Allergies Home Medications Medication Instructions Recorded Confirmed Type hydrOXYzine HCL [Atarax] 10 mg PO TID PRN #15 tab 11/17/22 04/18/23 Rx Aspirin 81 mg PO DAILY #30 tab 03/24/23 04/18/23 Rx Clopidogrel [Plavix] 75 mg PO DAILY 30 Days #30 tab 03/24/23 04/18/23 Rx LORazepam [Ativan] 0.5 mg PO BID 3 Days #6 tab 03/24/23 04/18/23 Rx Metoprolol Tartrate [Lopressor] 25 mg PO BID #30 tab 03/24/23 04/18/23 Rx Spironolactone [Aldactone] 25 mg PO DAILY 30 Days #30 tab 03/24/23 04/18/23 Rx lisinopriL [Zestril] 5 mg PO BID #30 tab 03/24/23 04/18/23 Rx predniSONE [Deltasone] 20 mg PO DIRECTED 12 Days #24 04/20/23 Rx tab HYDROcodone/APAP 5-325MG [[place] 1 tab PO Q6HR PRN 3 Days #12 tab 04/21/23 Rx 5-325] Allergies Allergy/AdvReac Type Severity Reaction Status Date / Time No Known Allergies Allergy Verified 04/18/23 11:20 Physical Exam Vitals: Vital Signs Temp Pulse Resp BP Pulse Ox 04/21/23 07:17 96.7 F L 73 16 124/78 95 04/21/23 02:00 97.5 F L 63 123/82 97 04/20/23 20:00 97.5 F L 85 99/65 95 04/20/23 14:20 97.7 F 68 18 98/57 96 Intake and Output 04/20/23 04/21/23 04/21/23 22:59 06:59 14:59 Intake Total 740 Balance 740 Intake: Oral 740 Other: # Voids 3 2 General appearance: The patient is alert, oriented, appears in no acute distress. HET: Head is normocephalic and atraumatic. Conjunctiva pink. Sclera anicteric. Neck: Supple without lymphadenopathy. Trachea midline. Heart: S1 S2. Regular rate and rhythm. Lungs: Clear to auscultation. Abdomen: Soft, nontender, nondistended with bowel sounds. No guarding or rigidity. Skin: No rashes. No jaundice. Extremities: Normal skin color and turgor. No pedal edema. Neurological: No focal deficits. Alert and oriented x3. Results CBC & Chem 7: 04/21/23 06:47 04/21/23 06:47 Labs: Abnormal Lab Results - Last 24 Hours (Table) 04/20/23 04/21/23 04/21/23 Range/Units 11:34 06:47 06:47 RBC 4.09 L (4.10-5.20) X 10*6/uL MCH 32.5 H (27.0-32.0) pg RDW 11.3 L (11.5-14.5) % Neutrophils # 8.06 H (1.80-7.70) X 10*3/uL Lymphocytes # 0.82 L (0.90-5.00) X 10*3/uL Eosinophils # 0.01 L (0.04-0.35) X 10*3/uL Sodium 128 L 134 L (137-145) mmol/L Creatinine 0.5 L (0.6-1.5) mg/dL AST 221 H (13-35) U/L ALT 405 H (8-44) U/L Alkaline Phosphatase 168 H (41-126) U/L Total Protein 5.9 L (6.2-8.2) d/dL Albumin 3.7 L (3.8-4.9) d/dL Assessment and Plan (1) Elevated LFTs Narrative/Plan: 63-year-old female who is admitted for hip pain who was noted to have elevated LFTs on admission. Patient also with history of daily alcohol use admitting to 12 ounces of vodka daily for years. She states she recently quit after NSTEMI about a month ago. At that time she was started on multiple medications including atorvastatin 40 mg daily. During her recent previous admissions she had noted normal LFTs. We are likely dealing with statin-induced elevated liver function tests. Recommend discontinuing statin, avoiding Hepatotoxic medications, alcohol abstinence, and will order liver ultrasound as well as hepatitis B and C antibody screening. Current Visit: Yes Status: Acute Code(s): R79.89 - OTHER SPECIFIED ABNORMAL FINDINGS OF BLOOD CHEMISTRY SNOMED Code(s): 905654371 (2) Alcohol abuse Current Visit: Yes Status: Acute Code(s): F10.10 - ALCOHOL ABUSE, UNCOMPLICATED SNOMED Code(s): 67488744 (3) History of ST elevation myocardial infarction (STEMI) Current Visit: Yes Status: Acute Code(s): I25.2 - OLD MYOCARDIAL INFARCTION SNOMED Code(s): 075246161864073 (4) Hyponatremia Current Visit: Yes Status: Acute Code(s): E87.1 - HYPO-OSMOLALITY AND HYPONATREMIA SNOMED Code(s): 23718883 (5) Right groin pain Current Visit: Yes Status: Acute Code(s): R10.31 - RIGHT LOWER QUADRANT PAIN SNOMED Code(s): 11632016585941718 Plan: 1. Continue symptomatic and supportive care 2. Discontinue atorvastatin, likely this is a statin-induced elevated LFTs 3. Avoid hepatotoxic medications 4. Recommend Alcohol abstinence 5. Hepatitis B and C antibody ordered 6. Liver ultrasound ordered 7. Follow-up with PCP regarding other options for cholesterol medication 8. Recommend outpatient follow-up with gastroenterology in 3-4 weeks to follow- up on LFTs. Thank you for this consultation, we will continue to follow. Dr. Bouchra Bobo I agree with the dictator's note, documented as a scribe by Monica Tafoya.
--- NOTE | 2023-04-21 13:18 | P.PN ---
Subjective Progress Note Date: 04/21/23 this is a 63-year-old lady with past medical history significant for coronary artery disease who presented to the ER because of right groin pain. Patient stated that she woke up this morning complaining of this right groin pain, states that she is unable to lift her leg or ambulate because of that. Patient unable to bear weight on this leg. Patient denies any trauma. She denies any bleeding or numbness in her lower extremity. Because of his right hip pain, patient came to the ER Initial lab work done showed WBC 9.2, hemoglobin 13.9, platelet count 191, sodium 124, potassium 5, chloride 93, carbon dioxide 21, glucose 114, AST 79, ALT 92 Right lower extremity duplex was negative for DVT Right hip x-ray negative for any fractures Patient admitted to medicine service 04/19. States right hip pain has improved. States she is able to move her hip better. Denies any fever or chills. 04/20. Patient seen and examined. Right hip pain has improved, orthopedic eval the patient recommended holding off on joint aspiration, recommend discharging on oral prednisone. Patient's sodium level is still 129. 7/. Patient seen and examined. Currently ambulating without a walker. States right hip pain has improved a lot REVIEW OF SYSTEMS: CONSTITUTIONAL: No fever, no malaise,. CARDIOVASCULAR: No chest pain, no palpitations, no syncope. PULMONARY: No shortness of breath, no cough, GASTROINTESTINAL: No diarrhea, no nausea, no vomiting, no abdominal pain. NEUROLOGICAL: No headaches, no weakness, PHYSICAL EXAMINATION: GENERAL: The patient is alert and oriented x3, not in any acute distress. Well developed, well nourished. HEENT: Pupils are round and equally reacting to light. EOMI. No scleral icterus. No conjunctival pallor. Normocephalic, atraumatic. No pharyngeal erythema. No thyromegaly. CARDIOVASCULAR: S1 and S2 present. No murmurs, rubs, or gallops. PULMONARY: Chest is clear to auscultation, no wheezing or crackles. ABDOMEN: Soft, nontender, nondistended, normoactive bowel sounds. No palpable organomegaly. MUSCULOSKELETAL: No joint swelling or deformity. Reduce range of motion of right hip EXTREMITIES: No cyanosis, clubbing, or pedal edema. NEUROLOGICAL: Gross neurological examination did not reveal any focal deficits. SKIN: No rashes. Assessment and plan Hyponatremia Elevated LFTs Right hip joint effusion History of stress-induced cardiomyopathy Hypertension hyperlipidemia History of alcohol abuse Monitor vital signs Monitor CBC monitor CMP Continue pain management Continue IV Solu-Medrol MRI right hip showed small right hip joint effusion and periarticular soft tissue edema. Orthopedic joint aspiration, recommend discharging on prednisone with outpatient follow-up with floor director Monitor LFTs DC statin Avoid hepatooxic agents Stripping [facility] Follow-up on PT and OT Follow-up on nephrology recommendations Objective - Vital Signs Vital signs: Vital Signs Temp 96.7 F L 04/21/23 07:17 Pulse 73 04/21/23 07:17 Resp 16 04/21/23 07:17 BP 124/78 04/21/23 07:17 Pulse Ox 95 04/21/23 07:17 FiO2 Intake & Output 04/20/23 04/21/23 04/21/23 18:59 06:59 18:59 Intake Total 740 Balance 740 Intake: Oral 740 Other: # Voids 3 2 - Labs CBC & Chem 7: 04/21/23 06:47 04/21/23 06:47 Labs: Abnormal Lab Results - Last 24 Hours (Table) 04/21/23 04/21/23 Range/Units 06:47 06:47 RBC 4.09 L (4.10-5.20) X 10*6/uL MCH 32.5 H (27.0-32.0) pg RDW 11.3 L (11.5-14.5) % Neutrophils # 8.06 H (1.80-7.70) X 10*3/uL Lymphocytes # 0.82 L (0.90-5.00) X 10*3/uL Eosinophils # 0.01 L (0.04-0.35) X 10*3/uL Sodium 134 L (135-145) mmol/L Creatinine 0.5 L (0.6-1.5) mg/dL AST 221 H (13-35) U/L ALT 405 H (8-44) U/L Alkaline Phosphatase 168 H (41-126) U/L Total Protein 5.9 L (6.2-8.2) d/dL Albumin 3.7 L (3.8-4.9) d/dL
--- NOTE | 2023-04-21 17:52 | US ---
EXAMINATION TYPE: US liver DATE OF EXAM: 04/21/2023 COMPARISON: NONE CLINICAL INDICATION: Female, 63 years old with history of elevated LFTs, ETOH abuse; Abnormal labs. TECHNIQUE: Multiple sonographic images of the right upper quadrant are obtained. FINDINGS: EXAM MEASUREMENTS: Liver Length: 12.1 cm Gallbladder Wall: 0.2 cm CBD: 0.3 cm Right Kidney: 10.0 x 4.9 x 3.8 cm Pancreas: Limited visualization Liver: wnl Gallbladder: No stones, sludge or wall thickening seen Evidence for sonographic Noguera's sign: neg CBD: wnl Right Kidney: No hydronephrosis or masses seen IMPRESSION: 1. No ultrasound abnormality right upper quadrant
[2023-04-21 21:31] VITALS: RESP 16
[2023-04-22 07:24] VITALS: BP 136/84; PULSE 72; TEMP 96.9
[2023-04-22] MEDS: methylPREDNISolone SOD SUCCI 125 MG/2 ML VIAL IV SCH (08:40)
[2023-04-22] MEDS: METOPROLOL TARTRATE 25 MG TAB PO SCH (09:20)
[2023-04-22] MEDS: VENLAFAXINE HCL 37.5 MG TAB PO SCH (09:20)
[2023-04-22] MEDS: LORazepam 0.5 MG TAB PO SCH (09:20)
[2023-04-22] MEDS: ASPIRIN 81 MG PO SCH (09:20)
[2023-04-22] MEDS: SPIRONOLACTONE 25 MG TAB PO SCH (09:20)
[2023-04-22] MEDS: CLOPIDOGREL 75 MG TAB PO SCH (09:20)
[2023-04-22 12:29] LABS: ALT 305 U/L (4-34); AST 108 U/L (14-36); African American GFR (CKD) >90 (>60 ml/min/1.73 sqM); Albumin 3.4 g/dL (3.5-5.0); Albumin/Globulin Ratio 1.4; Alkaline Phosphatase 146 U/L (38-126); Anion Gap 8 mmol/L; Blood Urea Nitrogen 13 mg/dL (7-17); Calcium 8.5 mg/dL (8.4-10.2); Carbon Dioxide 25 mmol/L (22-30); Chloride 94 mmol/L (98-107); Globulin 2.5 g/dL; Glucose 117 mg/dL (74-99); Non-African American GFR(CKD) >90 (>60 ml/min/1.73 sqM); Potassium 4.1 mmol/L (3.5-5.1); Sodium 127 mmol/L (137-145); Total Bilirubin 0.5 mg/dL (0.2-1.3); Total Protein 5.9 g/dL (6.3-8.2)
--- NOTE | 2023-04-22 12:34 | P.PN ---
Subjective Progress Note Date: 04/22/23 Principal diagnosis: Elevated LFTs This is a pleasant 63-year-old female who presented to the emergency department with complaints of leg pain in her groin and hip. She states that she was here about a week ago with similar complaints, however she was discharged on. Pain came back she was having difficult time walking. She had an MRI of the right hipreported small right hip joint effusion and periarticular soft tissue edema. Findings raise question of septic right joint and clinical correlation recommended. Orthopedics is following and consulted interventional radiology for right hip aspiration. On admission patient was noted to have elevated LFTs. She states no previous history of liver disease or elevated LFTs in the past. She also states however she has a history of daily alcohol use and drinks about 12 ounces of vodka daily up until about a month ago. She states about a month ago she had an PR and since that time she has not had any further drinking. She was started on several new medications at that time including atorvastatin. She denies any recent antibiotic use, states during her last year visit they did start her on prednisone which did help the initial hip pain. Gastroenterology was consulted for elevated LFTs. Admitting labs WBC 8.3 hemoglobin 12.7 platelet count 211,000 sodium 131 potassium 4.5 BUN 6.5 creatinine 0.4 total bilirubin 0.7 AST 162 ALT 264 alkaline phosphatase 152 with repeat total bilirubin 0.3 AST 221 ALT 405 alkaline phosphatase 168. She currently denies any chest pain, shortness of breath, abdominal pain, nausea or vomiting. 04/22/2023 Patient seen and examined today as a follow-up. She is without any complaints. Denies abdominal pain, nausea or vomiting. Liver ultrasound reports normal liver. Today's labs are currently pending. Objective - Vital Signs Vital signs: Vital Signs Temp 96.9 F L 04/22/23 07:24 Pulse 72 04/22/23 07:24 Resp 16 04/22/23 07:24 BP 136/84 04/22/23 07:24 Pulse Ox 98 04/22/23 07:24 FiO2 Intake & Output 04/21/23 04/22/23 04/22/23 18:59 06:59 18:59 Other: # Voids 4 2 - Exam General appearance: The patient is alert, oriented, appears in no acute distress. HET: Head is normocephalic and atraumatic. Conjunctiva pink. Sclera anicteric. Neck: Supple without lymphadenopathy. Abdomen: Soft, nontender, nondistended with bowel sounds. No guarding or rigidity. Extremities: Normal skin color and turgor. No pedal edema Skin: No rashes, no jaundice Neurological: No focal deficits. Alert and oriented. - Labs CBC & Chem 7: 04/21/23 06:47 04/22/23 11:54 Assessment and Plan (1) Elevated LFTs Narrative/Plan: 63-year-old female who is admitted for hip pain who was noted to have elevated LFTs on admission. Patient also with history of daily alcohol use admitting to 12 ounces of vodka daily for years. She states she recently quit after NSTEMI about a month ago. At that time she was started on multiple medications includi ng atorvastatin 40 mg daily. During her recent previous admissions she had noted normal LFTs. We are likely dealing with statin-induced elevated liver function tests. Recommend discontinuing statin, avoiding Hepatotoxic medications, alcohol abstinence, and will order liver ultrasound as well as h epatitis B and C antibody screening. Current Visit: Yes Status: Acute Code(s): R79.89 - OTHER SPECIFIED ABNORMAL FINDINGS OF BLOOD CHEMISTRY SNOMED Code(s): 937970918 (2) Alcohol abuse Current Visit: Yes Status: Acute Code(s): F10.10 - ALCOHOL ABUSE, UNCOMPLICATED SNOMED Code(s): 40892013 (3) History of ST elevation myocardial infarction (STEMI) Current Visit: Yes Status: Acute Code(s): I25.2 - OLD MYOCARDIAL INFARCTION SNOMED Code(s): 660097715640990 (4) Hyponatremia Current Visit: Yes Status: Acute Code(s): E87.1 - HYPO-OSMOLALITY AND HYPON ATREMIA SNOMED Code(s): 96739401 (5) Right groin pain Current Visit: Yes Status: Acute Code(s): R10.31 - RIGHT LOWER QUADRANT PAIN SNOMED Code(s): 77840534254057713 Plan: 1. Continue symptomatic and supportive care 2. Discontinue atorvastatin, likely her elevated LFTs are statin induced 3. Avoid hepatotoxic medications 4. Recommend Alcohol abstinence 5. Hepatitis B and C antibody ordered 6. Liver ultrasound ordered and reviewed 7. Follow-up with PCP regarding other options for cholesterol medication 8. Recommend outpatient follow-up with gastroenterology in 4 weeks to follow-up on LFTs. Thank you for this consultation. Patient is cleared for discharge from gastroenterology. Dr. Bouchra Bobo I agree with the dictator's note, documented as a scribe by Monica Tafoya.
[2023-04-22] MEDS ORDERED: SODIUM CHLORIDE TAB 1 GM TAB PO STA (12:52)
--- NOTE | 2023-04-22 12:52 | P.PN ---
Subjective Patient is seen for follow-up for hyponatremia. Status post sodium chloride tab with improvement in serum sodium to 134. Urine osmolality 268 and random urine sodium of 23. No pain in the right leg or groin today. Patient is able to ambulate well. She wants to go home. Sodium at 127 today. Patient seems to respond well to sodium chloride tab. Blood pressure is not elevated. 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 Improved post sodium chloride tabs. Currently off of IV fluids. Urine osmolality 268 with random urine sodium of 23 2. Right hip pain with joint effusion noted on MRI, possible septic arthritis 3. Hypertension with blood pressure currently controlled and on the lower side. Plan: I will repeat sodium chloride tab today and patient could be discharged on 1 g 3 times a week with repeat sodium to be drawn in about 2-3 days. Follow-up in the office in about 1 week.
--- NOTE | 2023-04-22 13:42 | P.DS ---
Providers Date of admission: 04/20/23 11:15 Expected date of discharge: 04/22/23 Attending physician: Sai Bledsoe MD Consults: 04/18/23 09:36 Consult Physician Routine Consulting Provider: Andrew Gar Consult Reason/Comments: Worsening right hip pain, rule out occult fracture Do you want consulting provider notified?: Yes 04/19/23 12:55 Consult Physician Routine Consulting Provider: Ro Batista Consult Reason/Comments: Hyponatremia Do you want consulting provider notified?: Yes 04/20/23 14:21 Consult Physician Routine Consulting Provider: Lilly Bobo Consult Reason/Comments: Elevated LFTs Do you want consulting provider notified?: Yes Primary care physician: Diana Og Hospital Course: Discharge diagnoses; Hyponatremia Elevated LFTs Right hip joint effusion History of stress-induced cardiomyopathy Hypertension hyperlipidemia History of alcohol abuse Hospital course; this is a 63-year-old lady with past medical history significant for coronary artery disease who presented to the ER because of right groin pain. Patient stated that she woke up this morning complaining of this right groin pain, states that she is unable to lift her leg or ambulate because of that. Patient unable to bear weight on this leg. Patient denies any trauma. She denies any bleeding or numbness in her lower extremity. Because of his right hip pain, patient came to the ER Initial lab work done showed WBC 9.2, hemoglobin 13.9, platelet count 191, sodium 124, potassium 5, chloride 93, carbon dioxide 21, glucose 114, AST 79, ALT 92 Right lower extremity duplex was negative for DVT Right hip x-ray negative for any fractures Patient admitted to medicine service 04/19. States right hip pain has improved. States she is able to move her hip better. Denies any fever or chills. 7. Patient seen and examined. Right hip pain has improved, orthopedic eval the patient recommended holding off on joint aspiration, recommend discharging on oral prednisone. Patient's sodium level is still 129. 7/4. Patient seen and examined. Currently ambulating without a walker. States right hip pain has improved a lot 04/22. Patient seen and examined. LFTs have improved, GI recommended discontinuing statins. Recommend outpatient follow-up with GI. Sodium level was 127 this morning, nephrology recommended discharging patient on sodium chloride tablets 1 g 3 times a week and following up outpatient in 1 week. PHYSICAL EXAMINATION: GENERAL: The patient is alert and oriented x3, not in any acute distress. Well developed, well nourished. HEENT: Pupils are round and equally reacting to light. EOMI. No scleral icterus. No conjunctival pallor. Normocephalic, atraumatic. No pharyngeal erythema. No thyromegaly. CARDIOVASCULAR: S1 and S2 present. No murmurs, rubs, or gallops. PULMONARY: Chest is clear to auscultation, no wheezing or crackles. ABDOMEN: Soft, nontender, nondistended, normoactive bowel sounds. No palpable organomegaly. MUSCULOSKELETAL: No joint swelling or deformity. EXTREMITIES: No cyanosis, clubbing, or pedal edema. NEUROLOGICAL: Gross neurological examination did not reveal any focal deficits. SKIN: No rashes. Patient Condition at Discharge: Stable Plan - Discharge Summary Discharge Rx Participant: Yes New Discharge Prescriptions: New predniSONE [Deltasone] 20 mg PO DIRECTED 12 Days #24 tab Sodium Chloride Tab 1 gm PO Q48H #7 tablet HYDROcodone/APAP 5-325MG [[place] 5-325] 1 tab PO Q6HR PRN 3 Days #12 tab PRN Reason: Pain Continue hydrOXYzine HCL [Atarax] 10 mg PO TID PRN #15 tab PRN Reason: Anxiety Metoprolol Tartrate [Lopressor] 25 mg PO BID #30 tab Clopidogrel [Plavix] 75 mg PO DAILY 30 Days #30 tab lisinopriL [Zestril] 5 mg PO BID #30 tab Spironolactone [Aldactone] 25 mg PO DAILY 30 Days #30 tab Aspirin 81 mg PO DAILY #30 tab LORazepam [Ativan] 0.5 mg PO BID 3 Days #6 tab Discontinued Atorvastatin [Lipitor] 40 mg PO DAILY #30 tab Discharge Medication List hydrOXYzine HCL [Atarax] 10 mg PO TID PRN #15 tab 11/17/22 [Rx] Aspirin 81 mg PO DAILY #30 tab 03/24/23 [Rx] Clopidogrel [Plavix] 75 mg PO DAILY 30 Days #30 tab 03/24/23 [Rx] LORazepam [Ativan] 0.5 mg PO BID 3 Days #6 tab 03/24/23 [Rx] Metoprolol Tartrate [Lopressor] 25 mg PO BID #30 tab 03/24/23 [Rx] Spironolactone [Aldactone] 25 mg PO DAILY 30 Days #30 tab 03/24/23 [Rx] lisinopriL [Zestril] 5 mg PO BID #30 tab 03/24/23 [Rx] predniSONE [Deltasone] 20 mg PO DIRECTED 12 Days #24 tab 04/20/23 [Rx] HYDROcodone/APAP 5-325MG [[place] 5-325] 1 tab PO Q6HR PRN 3 Days #12 tab 04/21/23 [Rx] Sodium Chloride Tab 1 gm PO Q48H #7 tablet 04/22/23 [Rx] Follow up Appointment(s)/Referral(s): [facility] [NON-STAFF] - As Needed (walker) Lilly Bobo MD [STAFF PHYSICIAN] - 4 Weeks Diana Og DO [Primary Care Provider] - 1-2 days Devang Merida DO [Doctor of Osteopathic Medicine] - As Needed Ambulatory/Diagnostic Orders: Comprehensive Metabolic Panel [LAB.AMB] Time Frame: 3 Weeks, Location: None Selected Discharge Disposition: HOME WITH HOME HEALTH SERVICES
[2023-04-22 16:35] LABS: Hepatitis B Surface AB- Quant 3.5 mIU/mL; Hepatitis C IgG Antibody Nonreactive
== END 2023-04-22 15:35 | disposition home health service (06) | DRG 546 ==
LOC: EC 20:47 → 4SSUR 04-18 02:40 → OBSVTOIN 04-20 11:15
PROVIDERS: ADMIT Internal Medicine; ATTEND Internal Medicine
DX: M06.851 Other specified rheumatoid arthritis, right hip (principal); E87.1 Hypo-osmolality and hyponatremia; I51.81 Takotsubo syndrome; I10 Essential (primary) hypertension; F10.11 Alcohol abuse, in remission; E78.5 Hyperlipidemia, unspecified; I25.10 Atherosclerotic heart disease of native coronary artery without angina pectoris; F41.9 Anxiety disorder, unspecified; R73.9 Hyperglycemia, unspecified; M25.451 Effusion, right hip; E86.1 Hypovolemia; T46.6X5A Adverse effect of antihyperlipidemic and antiarteriosclerotic drugs, initial encounter; R79.89 Other specified abnormal findings of blood chemistry; Z91.199 Patient's noncompliance with other medical treatment and regimen due to unspecified reason; Z79.82 Long term (current) use of aspirin; Z79.02 Long term (current) use of antithrombotics/antiplatelets; I25.2 Old myocardial infarction; Z79.899 Other long term (current) drug therapy; Z82.49 Family history of ischemic heart disease and other diseases of the circulatory system
CPT/HCPCS: 36415; 73502; 76705; 80048; 80053; 80076; 81003; 83935; 84295; 84300; 85025; 85610; 85652; 86140; 86706; 86803; 96361; 96372; 96374; 96376; 99285